=== PATIENT | female | born 1940 | race African-American/Black ===

== ENCOUNTER 2016-08-03 20:54 | Inpatient (IN) | payer MEDICARE, OTHER ==
[~2016-08-03] VITALS: Ht 152.4 cm; Wt 119.9 kg
[~2016-08-03 20:54] MED LIST: ALLO100T PO; AMLO5TAB2 PO; ASPI-482 PO; BUDE10.2 IH; DICL100G7 TP; EZET1TAB4 PO; FLUT1DIS3 IH; FURO-69 PO; HYDR-2666 PO; HYDR-2762 PO; ISOS20TA2 PO; LORA1TAB PO; LOSA25TA4 PO; MECL25TA3 PO; MELO-150 PO; METO100T11 PO; NITR0.4T SL; OMEP40CA5 PO; POTA20TA4 PO; PRED-220 PO; SERT50TA PO; SIMV10TA3 PO; SIMV20TA3 PO; TORS20TA2 PO; TRIA1CAP3 PO
[2016-08-03 21:29] LABS: BASO # 0.1 x10^3/uL (0.0-0.2); BASO % 1 % (0-3); EOS % 2 % (0-3); HEMATOCRIT 36.3 % (36.0-47.0); HEMOGLOBIN 11.1 g/dL (12.0-15.5); LYMPH # 2.2 x10^3/uL (1.0-4.8); LYMPH % 21 % (24-48); MEAN CORPUSCULAR HEMOGLOBIN 30 pg (25-35); MEAN CORPUSCULAR HGB CONC 31 g/dL (31-37); MEAN CORPUSCULAR VOLUME 96 fL (79-100); MONO % 7 % (0-9); NEUT % 69 % (31-73); PLATELET COUNT 225 x10^3/uL (140-400); RED BLOOD COUNT 3.76 x10^6/uL (3.50-5.40); RED CELL DISTRIBUTION WIDTH 14.9 % (11.5-14.5); WHITE BLOOD COUNT 10.1 x10^3/uL (4.0-11.0)
[2016-08-03 21:44] LABS: CALCIUM 9.6 mg/dL (8.5-10.1); CREATININE 0.9 mg/dL (0.6-1.0); GFR 74.1; POTASSIUM 4.4 mmol/L (3.5-5.1)
[2016-08-03] MEDS ORDERED: FUROSEMIDE 40 MG/4 ML VIAL. IVP ONE (22:00)
--- NOTE | 2016-08-03 22:17 | PHYS DOC ---
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 She's not been seen by any specialist for the last several months and her daughter at bedside is concerned that her respiratory status has been steadily worsening. Pt is normally requiring 4 L of supplemental oxygen and is currently saturating in the upper 90s on her usual 4 L in no acute distress. Pt has history of cough but this is chronic and likely secondary to her history of sarcoidosis. Review of Systems Review of Systems Constitutional: Denies fever or chills [] Eyes: Denies change in visual acuity, redness, or eye pain [] HENT: Denies nasal congestion or sore throat [] Respiratory: Has cough, has shortness of breath [] Cardiovascular: No additional information not addressed in HPI [] GI: Denies abdominal pain, nausea, vomiting, bloody stools or diarrhea [] : Denies dysuria or hematuria [] Musculoskeletal: Denies back pain or joint pain [] Integument: Denies rash or skin lesions [] Neurologic: Denies headache, focal weakness or sensory changes [] Endocrine: Denies polyuria or polydipsia [] Current Medications Current Medications Current Medications Medications (Trade) Dose Ordered Sig/Mike Start Time Stop Time Status Last Admin Dose Admin Furosemide (Lasix) 40 mg 1X ONCE 08/03/16 22:00 08/03/16 22:01 DC 08/03/16 22:15 40 MG Allergies Allergies Allergies Coded Allergies Type Severity Reaction Last Updated Verified codeine Allergy Intermediate N7V 06/29/13 Yes phenobarbital Allergy Intermediate 03/02/15 No Physical Exam Physical Exam Constitutional: Well developed, well nourished, no acute distress, non-toxic appearance. [] HENT: Normocephalic, atraumatic, bilateral external ears normal, oropharynx moist, no oral exudates, nose normal. [] Eyes: PERRLA, EOMI, conjunctiva normal, no discharge. [] Neck: Normal range of motion, no tenderness, supple, no stridor. [] Cardiovascular:Heart rate regular rhythm, no murmur [] Lungs & Thorax: Bilateral breath sounds clear to auscultation [] Abdomen: Bowel sounds normal, soft, no tenderness, no masses, no pulsatile masses. [] Skin: Warm, dry, no erythema, no rash. [] Back: No tenderness, no CVA tenderness. [] Extremities: No tenderness, no cyanosis, no clubbing, ROM intact, moderate lower extremity edema bilaterally. [] Neurologic: Alert and oriented X 3, normal motor function, normal sensory function, no focal deficits noted. [] Psychologic: Affect normal, judgement normal, mood normal. [] Current Patient Data Vital Signs Vital Signs Date Time Temp Pulse Resp B/P Pulse Ox O2 Delivery O2 Flow Rate FiO2 08/03/16 22:00 90 16 151/85 97 Nasal Cannula 4 08/03/16 20:54 98.1 98.1 Lab Values Laboratory Tests Test 08/03/16 21:22 White Blood Count 10.1x10^3/uL (4.0-11.0) Red Blood Count 3.76x10^6/uL (3.50-5.40) Hemoglobin 11.1g/dL (12.0-15.5) L Hematocrit 36.3% (36.0-47.0) Mean Corpuscular Volume 96fL (79-100) Mean Corpuscular Hemoglobin 30pg (25-35) Mean Corpuscular Hemoglobin Concent 31g/dL (31-37) Red Cell Distribution Width 14.9% (11.5-14.5) H Platelet Count 225x10^3/uL (140-400) Neutrophils (%) (Auto) 69% (31-73) Lymphocytes (%) (Auto) 21% (24-48) L Monocytes (%) (Auto) 7% (0-9) Eosinophils (%) (Auto) 2% (0-3) Basophils (%) (Auto) 1% (0-3) Neutrophils # (Auto) 7.0x10^3uL (1.8-7.7) Lymphocytes # (Auto) 2.2x10^3/uL (1.0-4.8) Monocytes # (Auto) 0.7x10^3/uL (0.0-1.1) Eosinophils # (Auto) 0.2x10^3/uL (0.0-0.7) Basophils # (Auto) 0.1x10^3/uL (0.0-0.2) Sodium Level 143mmol/L (136-145) Potassium Level 4.4mmol/L (3.5-5.1) Chloride Level 101mmol/L (98-107) Carbon Dioxide Level 41mmol/L (21-32) H Anion Gap 1 (6-14) L Blood Urea Nitrogen 17mg/dL (7-20) Creatinine 0.9mg/dL (0.6-1.0) Estimated GFR (Cockcroft-Gault) 74.1 Glucose Level 117mg/dL (70-99) H Calcium Level 9.6mg/dL (8.5-10.1) Troponin I Quantitative < 0.017ng/mL (0.000-0.055) KF-Euf-T-Type Natriuretic Peptide 2097pg/mL (0-124) H Laboratory Tests 08/03/16 21:22 Laboratory Tests 08/03/16 21:22 EKG EKG EKG as interpreted by me shows a sinus rhythm with rate of 87 bpm. There are no acute ischemic findings. Intervals are normal. Radiology/Procedures Radiology/Procedures One view of the chest as interpreted by me shows some vascular congestion and cardiomegaly consistent with CHF exacerbation. Course & Med Decision Making Course & Med Decision Making Pertinent Labs and Imaging studies reviewed. (See chart for details) This 76 yo female with history of CHF and insterstitial lung disease will be admitted to the hospital for likely CHF exacerbation. Her proBNP is elevated at 2000 which is much higher than her usual baseline. A dose of IV Lasix was given. Her case was discussed with the hospitalist, Dr. Juarez, who agreed to accept the patient with cardiology and pulmonology consult. Her chest x-ray is consistent with findings of CHF exacerbation. Her EKG did not reveal any obvious findings. Dragon Disclaimer Dragon Disclaimer This electronic medical record was generated, in whole or in part, using a voice recognition dictation system. Departure Departure Impression: Primary Impression: CHF exacerbation Disposition: ADMITTED INPATIENT Admitting Physician: Aric Juarez Condition: STABLE Referrals: ARIC JUAREZ MD (PCP) DHARMESH BANUELOS DO Aug 03, 2016 22:17
[2016-08-03] MEDS: FUROSEMIDE INJ 100 MG in IV NORMAL SALINE 100ML 100 ML IV PRN (22:26)
--- NOTE | 2016-08-03 22:58 | ACF ---
Admission Forms Criteria HEART FAILURE: COMMON COMPLICATIONS Clinical Indications for Inpatient Care (Place 'X' for any and all applicable criteria): Ongoing inpatient care may be indicated for heart failure with ANY ONE of the following (1)(2)(3)(4)(5): [ ]I. Ongoing need for care for primary condition requiring frequent therapy adjustments because of changes in cardiac function (eg, drug dosage changes for drugs that are renally metabolized) [ ]II. New-onset heart failure [ ]III. Heart failure with decreased urine output not responsive to attempts to optimize volume status [ ]IV. Acute cardiac ischemia causing or associated with failure [X]V. Complications of heart failure, including ANY ONE of the following: [ ]a) Pericardial effusion [ ]b) Symptomatic pleural effusion [ ]c) O2 saturation <90% or PO2 < 60 mm Hg (8.0 kPa) on room air or require baseline supplemental O2 [ ]d) Tachypnea [X]e) Dyspnea [ ]f) Syncope [ ]g) Change in mental status [ ]h) Acute renal insufficiency that is severe (reduction of more than 50% in estimated glomerular filtration rate from baseline) or progressive reduction of more than 25% in estimated glomerular filtration rate from baseline, with creatinine continuing to rise) [ ]i) Hemodynamic instability [ ]j) Anasarca [ ]k) Clinically significant metabolic abnormalities due to heart failure (eg, new-onset metabolic acidosis) Extended stay beyond goal length of stay for primary condition may be needed until ALL of the following are present(1)(3): [ ]a) Stable and effective diuretic regimen established (or patient on stable dialysis regimen if in chronic renal failure) [ ]b) Breathing comfortably at rest [ ]c) Saturation of arterial oxygen greater than 90% or at acceptable baseline [ ]d) Pulmonary edema absent or improved [ ]e) Hemodynamic stability [ ]f) Volume status acceptable on oral medication [ ]g) Peripheral or sacral edema absent or improved [ ]h) Renal function stable and manageable at a lower level of care [ ]i) Complications (eg, pleural effusion) resolved or manageable at a lower level of care [ ]j) Patient or caregiver has received written discharge instructions or educational material addressing activity level, diet, discharge medications, follow-up appointment, weight monitoring, and what to do if symptoms worsen The original [facility] content created by [employer] has been revised. The portions of the content which have been revised are identified through the use of italic text or in bold, and [facility] has neither reviewed nor approved the modified material.All other unmodified content is copyright [facility]. Please see references footnoted in the original [facility] edition 2016 Admission Criteria Met?: Yes COLLIN CARMONA. Aug 03, 2016 22:58
[2016-08-04] VITALS (11 sets, daily range): BP systolic 100–139; BP diastolic 47–84
[2016-08-04] MEDS ORDERED: ISOS30TA4 PO (01:17)
[2016-08-04] MEDS ORDERED: METO-269 PO (01:17)
[2016-08-04] MEDS ORDERED: SERT100T PO (01:17)
[2016-08-04] MEDS ORDERED: BUDE10.2 IH (01:17)
[2016-08-04 05:03] LABS: BASO # 0.1 x10^3/uL (0.0-0.2); BASO % 1 % (0-3); EOS % 3 % (0-3); HEMATOCRIT 32.5 % (36.0-47.0); HEMOGLOBIN 10.4 g/dL (12.0-15.5); LYMPH % 22 % (24-48); MEAN CORPUSCULAR HEMOGLOBIN 30 pg (25-35); MEAN CORPUSCULAR HGB CONC 32 g/dL (31-37); MEAN CORPUSCULAR VOLUME 94 fL (79-100); MONO % 10 % (0-9); NEUT % 63 % (31-73); PLATELET COUNT 198 x10^3/uL (140-400); RED BLOOD COUNT 3.45 x10^6/uL (3.50-5.40); RED CELL DISTRIBUTION WIDTH 14.7 % (11.5-14.5)
[2016-08-04 05:30] LABS: CALCIUM 8.8 mg/dL (8.5-10.1); CREATININE 1.1 mg/dL (0.6-1.0); GFR 58.7; POTASSIUM 3.9 mmol/L (3.5-5.1)
--- NOTE | 2016-08-04 08:52 | EKG ---
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
--- NOTE | 2016-08-04 08:58 | RAD ---
Indication shortness of air. A single view of the chest was obtained. Comparison is made to an examination 03/07/2015. There is mild cardiomegaly. There are patchy infiltrates in the lungs suggesting mild congestive heart failure. A consolidated pneumonia is not seen. Significant pleural fluid is not seen. There is no pneumothorax. IMPRESSION: Probable mild congestive heart failure. No focal consolidated pneumonia
[2016-08-04] MEDS ORDERED: HYDROCODONE/APAP 7.5/325MG TABLET. PO PRN (09:00)
[2016-08-04] MEDS ORDERED: LORAZEPAM 0.5 MG TABLET. PO PRN (09:00)
--- NOTE | 2016-08-04 09:03 | PDOC ---
Provider Note Provider Note [id number] AHMET SUAREZ MD Aug 04, 2016 09:03
[2016-08-04] MEDS: SERTRALINE 50 MG TABLET. PO SCH (09:41)
[2016-08-04] MEDS: ALLOPURINOL 100 MG TABLET. PO SCH (09:41)
[2016-08-04] MEDS: ISOSORBIDE MONONITRATE ER 30 MG TAB.ER.24H PO SCH (09:41)
[2016-08-04] MEDS: POTASSIUM CHLORIDE 20 MEQ TABLET.ER. PO SCH ×2 (09:41→17:46)
--- NOTE | 2016-08-04 09:51 | PDOC2 ---
PETER MUJICA DRY PASTE SUPERVISOR 08/04/16 0951: CARDIAC CONSULT DATE OF CONSULT Date of Consult DATE: 08/04/16 TIME: 09:45 REASON FOR CONSULT Reason for Consult: CHF Exacerbation REFERRING PHYSICIAN Referring Physician: Dr. Maher SOURCE Source: Chart review, Patient HISTORY OF PRESENT ILLNESS HISTORY OF PRESENT ILLNESS This is a 76 yo female, with a history of sarcoidosis, CAD, HTN, and chronic diastolic heart failure, who presented with complaints of lower extremity edema and shortness of breath, which is a chronic issue for. Reports LE edema has been ongoing for the last couple weeks. Shortness of breath and cough have been ongoing for the last year. Mild worse the baseline for the last week or so. Denies any chest pain, palpitations, dizziness, diaphoresis, or nausea/ vomiting. Reports complaints with medications. No recent illness/fevers. Has baseline orthopnea. PAST MEDICAL HISTORY Cardiovascular: CHF, HTN, Hyperlipidemia, Pulmonary hypertension, Other (ICM) Pulmonary: COPD, Other (sarcoidosis, JENELLE) GI: GERD Heme/Onc: No pertinent hx Hepatobiliary: No pertinent hx Psych: Anxiety, Depression Musculoskeletal: low back pain, Osteoarthritis Rheumatologic: Gout Infectious disease: No pertinent hx ENT: No pertinent hx Renal/: Chronic renal insuff Endocrine: Diabetes Dermatology: No pertinent hx PAST SURGICAL HISTORY Past Surgical History T & A FAMILY HISTORY Family History: Cancer, Heart Disease, Stroke SOCIAL HISTORY Smoke: No ALCOHOL: none Drugs: None Lives: with Family CURRENT MEDICATIONS CURRENT MEDICATIONS Current Medications Medications (Trade) Dose Ordered Sig/Mike Route PRN Reason Start Time Stop Time Status Last Admin Dose Admin Furosemide 40 mg 40 mg 1X ONCE IVP 08/03/16 22:00 08/03/16 22:01 DC 08/03/16 22:15 Furosemide/Sodium Chloride (Lasix Drip/Iv Sodium Chloride 0.9% 100ml) 100 ml @ 5 mls/hr CONT PRN IV SEE I/O RECORD 08/03/16 22:15 08/03/16 22:26 Allopurinol (Zyloprim) 100 mg DAILY PO 08/04/16 10:00 08/04/16 09:41 Isosorbide Mononitrate (Imdur) 30 mg DAILY PO 08/04/16 10:00 08/04/16 09:41 Lorazepam (Ativan) 1.5 mg PRN BID PRN PO ANXIETY / AGITATION 08/04/16 09:00 08/04/16 09:43 Potassium Chloride (Klor-Con) 20 meq BIDWMEALS PO 08/04/16 10:00 08/04/16 09:41 Sertraline HCl (Zoloft) 100 mg DAILY PO 08/04/16 10:00 08/04/16 09:41 ALLERGIES ALLERGIES: Coded Allergies: codeine (Verified Allergy, Intermediate, N7V, 06/29/13) phenobarbital (Unverified Allergy, Intermediate, 03/02/15) ROS Review of System 14 point ROS conducted with pertinent positives noted above in HPI PHYSICAL EXAM General: Alert, Oriented X3, Cooperative, No acute distress HEENT: Atraumatic, Mucous membr. moist/pink Lungs: Other (diminished bases ) Heart: Regular rate, Normal S1, Normal S2, No murmurs Abdomen: Soft, Other (obese ) Extremities: Other (2+ bilateral LE pitting edema. RLE with mild erythema. 1+ bilateral DP pulses ) Skin: No significant lesion Neuro: Normal speech, Sensation intact Psych/Mental Status: Mental status NL, Mood NL VITALS VITALS Vital Signs Date Time Temp Pulse Resp B/P Pulse Ox O2 Delivery O2 Flow Rate FiO2 08/04/16 09:41 77 109/63 08/04/16 08:50 Nasal Cannula 4.0 08/04/16 07:00 97.3 24 96 97.3 LABS Lab: Laboratory Tests Test 08/03/16 21:22 08/04/16 04:45 White Blood Count 10.1x10^3/uL (4.0-11.0) 9.0x10^3/uL (4.0-11.0) Red Blood Count 3.76x10^6/uL (3.50-5.40) 3.45x10^6/uL (3.50-5.40) Hemoglobin 11.1g/dL (12.0-15.5) 10.4g/dL (12.0-15.5) Hematocrit 36.3% (36.0-47.0) 32.5% (36.0-47.0) Mean Corpuscular Volume 96fL (79-100) 94fL (79-100) Mean Corpuscular Hemoglobin 30pg (25-35) 30pg (25-35) Mean Corpuscular Hemoglobin Concent 31g/dL (31-37) 32g/dL (31-37) Red Cell Distribution Width 14.9% (11.5-14.5) 14.7% (11.5-14.5) Platelet Count 225x10^3/uL (140-400) 198x10^3/uL (140-400) Neutrophils (%) (Auto) 69% (31-73) 63% (31-73) Lymphocytes (%) (Auto) 21% (24-48) 22% (24-48) Monocytes (%) (Auto) 7% (0-9) 10% (0-9) Eosinophils (%) (Auto) 2% (0-3) 3% (0-3) Basophils (%) (Auto) 1% (0-3) 1% (0-3) Neutrophils # (Auto) 7.0x10^3uL (1.8-7.7) 5.7x10^3uL (1.8-7.7) Lymphocytes # (Auto) 2.2x10^3/uL (1.0-4.8) 2.0x10^3/uL (1.0-4.8) Monocytes # (Auto) 0.7x10^3/uL (0.0-1.1) 0.9x10^3/uL (0.0-1.1) Eosinophils # (Auto) 0.2x10^3/uL (0.0-0.7) 0.3x10^3/uL (0.0-0.7) Basophils # (Auto) 0.1x10^3/uL (0.0-0.2) 0.1x10^3/uL (0.0-0.2) Sodium Level 143mmol/L (136-145) 145mmol/L (136-145) Potassium Level 4.4mmol/L (3.5-5.1) 3.9mmol/L (3.5-5.1) Chloride Level 101mmol/L (98-107) 104mmol/L (98-107) Carbon Dioxide Level 41mmol/L (21-32) 44mmol/L (21-32) Anion Gap 1 (6-14) -3 (6-14) Blood Urea Nitrogen 17mg/dL (7-20) 17mg/dL (7-20) Creatinine 0.9mg/dL (0.6-1.0) 1.1mg/dL (0.6-1.0) Estimated GFR (Cockcroft-Gault) 74.1 58.7 Glucose Level 117mg/dL (70-99) 155mg/dL (70-99) Calcium Level 9.6mg/dL (8.5-10.1) 8.8mg/dL (8.5-10.1) Troponin I Quantitative < 0.017ng/mL (0.000-0.055) TI-Ckc-N-Type Natriuretic Peptide 2097pg/mL (0-124) Thyroid Stimulating Hormone (TSH) 1.464uIU/mL (0.358-3.74) ECHOCARDIOGRAM ECHOCARDIOGRAM <Conclusion> Technically difficult study. The left ventricle is normal size. Left ventricle systolic function appears low normal to mildly decreased. LV ejection fraction is estimated at 45%. There is no significant aortic valvular stenosis. Doppler and Color Flow revealed no significant aortic regurgitation. Doppler and Color Flow revealed trace to mild mitral regurgitation. Doppler and Color Flow revealed trace to mild tricuspid regurgitation. The PA pressure was estimated at 35 mmHg. There is no evidence of significant pericardial effusion. DATE: 01/30/15 1641 <Conclusion> The left ventricle is normal size. Left ventricle systolic function is normal. The Ejection Fraction is 50-55%. There is no significant aortic valvular stenosis. Doppler and Color Flow revealed no significant aortic regurgitation. Doppler and Color Flow revealed mild mitral regurgitation. Doppler and Color Flow revealed mild tricuspid regurgitation. The PA pressure was estimated at 43 mmHg. DATE: 01/16/16 1123 HEART CATH HEART CATH CORONARY ANGIOGRAPHY LM is a large caliber vessel with an ostial 20% stenosis. LAD is a moderate caliber vessel with mild luminal irregularities. Ramus is a moderate caliber proximally bifurcating vessel with mild luminal irregularities. LCx is a moderate caliber non-dominant vessel with a mid 30% stenosis. RCA is a moderate caliber dominant vessel with a mid long 50% stenosis. The distal vessel is free of significant obstructive disease. There is a prominent RV marginal branch suggestive of RV hypertrophy. Conclusion 1. Elevated left ventricular filling pressure. 2. Non-obstructive coronary artery disease. DATE: 05/06/15 1235 ASSESSMENT/PLAN ASSESSMENT/PLAN 1. Acute on chronic diastolic heart failure 2. Acute on chronic respiratory failure 3. Sarcoidosis 4. Pulmonary HTN; PAP 43 5. CAD, non-obstructive 6. Hypertension 7. CKD 8. Diabetes Recommendations Will repeat echo to assess LV function Continue diuresis with monitor of renal function continue ASA, BB, and nitrate check lipids- statin therapy if indicated follow pulmonary recommendations Problems: FELICIA FIGUEROA MD 08/04/16 1810: CARDIAC CONSULT ALLERGIES ALLERGIES: Coded Allergies: codeine (Verified Allergy, Intermediate, N7V, 06/29/13) phenobarbital (Unverified Allergy, Intermediate, 03/02/15) ASSESSMENT/PLAN ASSESSMENT/PLAN Patient seen and examined. Agree with above nurse practitioner noted. 76-year-old woman presenting with significant lower extremity edema and exertional dyspnea over the last 3-4 months. Denies any chest pain, arrhythmias or dietary noncompliance. On examination she has 2+ pitting edema below the knee. Echocardiogram demonstrates normal LV function. Continue aggressive diuresis. Supportive care. Might benefit from rehabilitation. Will follow along closely. Problems: PETER MUJICA APRN Aug 04, 2016 09:51 FELICIA FIGUEROA MD Aug 04, 2016 18:10
[2016-08-04] MEDS: ASPIRIN ENTERIC COATED 81 MG TABLET.DR. PO SCH (10:00)
[2016-08-04] MEDS: METOPROLOL SUCC 24HR ER 50 MG TAB.ER.24H. PO SCH (10:00)
--- NOTE | 2016-08-04 10:52 | HP ---
ADMIT DATE: 08/03/2016 CHIEF COMPLAINT: Shortness of breath and swelling. HISTORY OF PRESENT ILLNESS: A 76-year-old black female has been on oxygen for several years for history of pulmonary sarcoidosis. One year ago, she had a cardiac catheterization, which revealed a good ejection fraction and only mild coronary disease and echocardiogram showed ejection fraction of 55% with mild pulmonary hypertension. So, it is felt her problems were primarily pulmonary. She has had increasing shortness of breath and nonproductive cough for the last few weeks as well as swelling. PAST MEDICAL HISTORY: Diet-controlled diabetic. She has CKD 3, which is stable. MEDICATIONS: Listed per the chart. ALLERGIES: CODEINE. SOCIAL HISTORY: She is , lives with her daughter. Nonsmoker, nondrinker, not physically active. FAMILY HISTORY: Unremarkable. REVIEW OF SYSTEMS: No other complaints. OBJECTIVE: ENT: All within normal limits. NECK: No masses, nodes or thyroid enlargement or bruits. LUNGS: Decreased breath sounds. No tachypnea or wheezes. CARDIOVASCULAR: Regular rate. No tachycardia or S3. ABDOMEN: Obese, soft, benign and nontender. EXTREMITIES: A 2+ pretibial edema up to both knees, pitting in nature. Pedal pulses are mildly diminished. Upper extremities are normal. NEUROLOGIC: Physiologic and nonfocal. ASSESSMENT: 1. History of pulmonary sarcoidosis with ongoing pedal edema. It may be secondary to pulmonary hypertension, but other possibilities would be recurrent pulmonary emboli, hypothyroidism and others. 2. History of mild coronary disease with no notable cardiomyopathy. PLAN: TSH. We will check outpatient records regarding last CT scan, pulmonary consultation and continue Lasix infusion for now. AHMET SUAREZ MD DR: PHILLIP/annamarie JOB#: [id number] / [id number]
--- NOTE | 2016-08-04 12:37 | PDOC ---
Provider Note Provider Note dictated MARCELINA KABA MD Aug 04, 2016 12:37
--- NOTE | 2016-08-04 13:45 | CONS ---
DATE OF CONSULTATION: 08/04/2016 ATTENDING PHYSICIAN: Dr. Aric Juarez. REASON FOR CONSULTATION: Dyspnea. 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 She has history of cardiac catheterization which revealed good ejection fraction but evidence of increased left ventricular filling pressures consistent with CHF. She has history of JENELLE, but intolerant to CPAP. She was brought into the hospital with increasing abdominal girth and also increased lower extremity edema. The patient has been on 4 liters of oxygen at home and at present saturation is 95%. Her chest x-ray was reviewed, and it was consistent with mild congestive heart failure. She has no cough, no fever, no chills, no chest pain, no headache, no nausea, vomiting, no diarrhea. PAST MEDICAL HISTORY: History of diabetes, history of CKD stage III, history of obstructive sleep apnea with intolerance to CPAP, and history of chronic respiratory failure. PAST SURGICAL HISTORY: No recent surgery. ALLERGIES: CODEINE AND PHENOBARB. CURRENT MEDICATIONS: Reviewed as listed in the MRAD. REVIEW OF SYSTEMS: Twelve-point system was obtained. Pertinent positives are discussed in the history of present illness, otherwise noncontributory. All systems that were negative were reviewed as well. SOCIAL HISTORY: Denies tobacco use. PHYSICAL EXAMINATION: VITAL SIGNS: Stable, pulse oximetry 95% on 4 liters. NECK: Supple. LUNGS: Diminished breath sounds. CARDIOVASCULAR: Regular rate. ABDOMEN: Soft, obese. EXTREMITIES: With 3+ pitting edema bilaterally. LABORATORY DATA: Reviewed. White cell count 9.0, hemoglobin 10.4, and platelets are 198, BUN is 17, and creatinine 0.9. IMPRESSION: 1. Dyspnea with increasing pedal edema, most likely secondary to biventricular heart failure. 2. Underlying obstructive sleep apnea/obesity hypoventilation syndrome with intolerance to CPAP. 3. Underlying diastolic heart failure with previous cardiac catheterization with a normal ejection fraction but evidence of increased left heart filling pressures. 4. Morbid obesity. 5. Abnormal chest x-ray consistent with congestive heart failure. RECOMMENDATIONS: 1. Continue with present Lasix drip. 2. Follow BUN and creatinine. 3. Follow chest x-ray. 4. Continue oxygen at 4 liters. 5. Continue with present bronchodilator. 6. We will follow along with you. Discussed with the family. MARCELINA KABA MD DR: Neeraj JOB#: [id number] / [id number]
--- NOTE | 2016-08-04 16:03 | CARD ---
APPROVED REPORT EXAM: Two-dimensional and M-mode echocardiogram with Doppler and color Doppler. Other Information Quality : FairHR: 97bpm Rhythm : NSR INDICATION Congestive Heart Failure RISK FACTORS Obesity 2D DIMENSIONS RVDd2.3 (2.9-3.5cm)Left Atrium(2D)3.5 (1.6-4.0cm) IVSd1.2 (0.7-1.1cm)Aortic Root(2D)2.8 (2.0-3.7cm) LVDd5.0 (3.9-5.9cm)LVOT Diameter2.1 (1.8-2.4cm) PWd1.2 (0.7-1.1cm)LVDs3.5 (2.5-4.0cm) FS (%) 30.3 %SV67.3 ml LVEF(%)57.5 (>50%) Aortic Valve AoV Peak Prem.169.7cm/sAoV VTI30.0cm AO Peak GR.11.5mmHgLVOT VTI 16.44cm AO Mean GR.7mmHg Mitral Valve MV E Wpyfnyyi070.5cm/sMV E Peak Gr.6mmHg MV DECEL DJEV054oaPM A Jvwuzfit75.8cm/s MV E Mean Gr.3mmHgE/A Ratio1.3 MV A [id number] TDI Lateral E' P. V9.08cm/sMedial E' P. V10.46cm/s E/Lateral E'11.4E/Medial E'9.9 LEFT VENTRICLE The left ventricle is normal size. There is mild concentric left ventricular hypertrophy. The left ve ntricular systolic function is normal and the ejection fraction is within normal range. The Ejection Fraction is 60-65%. There is normal LV segmental wall motion. Transmitral Doppler flow pattern is nor mal for age. RIGHT VENTRICLE The right ventricle is not well visualized. There is normal right ventricular wall thickness. The rig ht ventricular systolic function is normal. ATRIA The left atrium is not well visualized. The right atrium is not well visualized. The atrial septum is not well visualized. AORTIC VALVE The aortic valve is not well visualized. Doppler and Color Flow revealed no significant aortic regurg itation. There is no significant aortic valvular stenosis. MITRAL VALVE There is no mitral valve stenosis. Doppler and Color Flow revealed no mitral valve regurgitation note d. TRICUSPID VALVE The tricuspid valve is not well visualized. Unable to assess for regurgitation or pulmonary hypertens ion. PULMONIC VALVE Pulmonary valve is not well visualized. GREAT VESSELS The aortic root is normal in size. The IVC was not visualized. PERICARDIAL EFFUSION There is no evidence of significant pericardial effusion. Critical Notification Critical Value: No <Conclusion> The left ventricular systolic function is normal and the ejection fraction is within normal range. Th e Ejection Fraction is 60-65%. There is grossly normal LV segmental wall motion. Technically difficult study due to body habitus.
[2016-08-04] MEDS: FUROSEMIDE INJ 100 MG in IV NORMAL SALINE 100ML 100 ML IV PRN (23:26)
[2016-08-05] VITALS (7 sets, daily range): BP systolic 95–128; BP diastolic 48–82
[2016-08-05 03:46] LABS: CHOLESTEROL/HDL RATIO 2.4
--- NOTE | 2016-08-05 09:14 | PDOC ---
Provider Note Provider Note still dry cough and edema but less- vss, lab / echo ok- will do bid lasix now, ? ct chest re sarcoid status AHMET SUAREZ MD Aug 05, 2016 09:14
[2016-08-05] MEDS: ASPIRIN ENTERIC COATED 81 MG TABLET.DR. PO SCH (09:17)
[2016-08-05] MEDS: POTASSIUM CHLORIDE 20 MEQ TABLET.ER. PO SCH ×2 (09:18→17:45)
[2016-08-05] MEDS: ALLOPURINOL 100 MG TABLET. PO SCH (09:18)
[2016-08-05] MEDS: SERTRALINE 50 MG TABLET. PO SCH (09:18)
[2016-08-05] MEDS: ISOSORBIDE MONONITRATE ER 30 MG TAB.ER.24H PO SCH (09:20)
[2016-08-05] MEDS: METOPROLOL SUCC 24HR ER 50 MG TAB.ER.24H. PO SCH (09:20)
[2016-08-05] MEDS: FUROSEMIDE 40 MG/4 ML VIAL. IVP SCH ×2 (11:19→14:15)
[2016-08-05 11:46] LABS: CALCIUM 8.5 mg/dL (8.5-10.1); CREATININE 1.1 mg/dL (0.6-1.0); GFR 58.7; MAGNESIUM 2.2 mg/dL (1.8-2.4); POTASSIUM 3.9 mmol/L (3.5-5.1)
--- NOTE | 2016-08-05 11:53 | PDOC ---
PETER MUJICA FILTER P[employer]P W[employer]ER 08/05/16 1153: CARDIO Progress Notes Date and Time Date of Service 08/05/16 Time of Evaluation 1115 Subjective Subjective: No Chest Pain, No Palpitations, No Dizziness, Other (SOA improved but persists ) Vitals Vitals Vital Signs Date Time Temp Pulse Resp B/P Pulse Ox O2 Delivery O2 Flow Rate FiO2 08/05/16 11:00 98.1 86 20 95/53 96 Nasal Cannula 4.0 98.1 Weight Weight [ ] Input and Output Intake and Output Intake and Output 08/05/16 06:59 Intake Total 1064 ml Output Total 2800 ml Balance -1736 ml Intake Oral 990 ml IV Total 74 ml Output Urine Total 2800 ml Laboratory Labs Laboratory Tests Test 08/05/16 03:10 Triglycerides Level 34mg/dL (0-150) Cholesterol Level 161mg/dL (0-200) LDL Cholesterol, Calculated 88mg/dL (0-100) VLDL Cholesterol, Calculated 7mg/dL (0-40) HDL Cholesterol 66mg/dL (40-60) Cholesterol/HDL Ratio 2.4 Physical Exam HEENT: Neck Supple W Full Motion Chest: Symmetric LUNGS: Clear to Auscultation, Other (diminished bases ) Heart: S1S2, RRR, no murmurs Abdomen: Soft N/T, Other (obese ) Extremities: No Calf Tenderness, Other (2+ bilateral LE pitting edema. 1+ bilateral DP pulses) Neurology: alert, oriented, follow commands Assessment Assessment 1. Acute on chronic diastolic heart failure 2. Acute on chronic respiratory failure 3. Sarcoidosis 4. Pulmonary HTN; PAP 43 5. CAD, non-obstructive 6. Hypertension 7. CKD 8. Diabetes Recommendations recheck BMP Continue aggressive diuresis with monitoring of renal function Follow pulmonary recommendations Supportive care from CV perspective. FELICIA FIGUEROA MD 08/05/16 9789: CARDIO Progress Notes Plan Plan Patient seen and examined. Agree with above nurse practitioner noted. Patient reports that she feels a little bit better than yesterday Excellent diuresis approximately -4 L since admission. Medications reviewed and currently on Lasix 40 mg IV push twice a day On exam she has persistent 2+ pitting edema. Labs reviewed and creatinine is stable. Her Dolan catheter is been discontinued. We will check a standing weight today and repeated again tomorrow. Anticipate that if she maintains good urine output overnight then we will plan on discharging her on twice a day dosing of Lasix or Bumex We will follow along closely. Discussed with family at bedside. PETER MUJICA APRN Aug 05, 2016 11:53 FELICIA FIGUEROA MD Aug 05, 2016 17:19
--- NOTE | 2016-08-05 12:06 | PDOC ---
PULMONARY PROGRESS NOTES Subjective feels better Vitals Vital Signs Date Time Temp Pulse Resp B/P Pulse Ox O2 Delivery O2 Flow Rate FiO2 08/05/16 11:00 98.1 86 20 95/53 96 Nasal Cannula 4.0 98.1 General: Alert, No acute distress Lungs: Other (decrease bs) Cardiovascular: S1 Abdomen: Soft, Non-tender Extremities: Other (2+edema) Labs Laboratory Tests Test 08/03/16 21:22 08/04/16 04:45 08/05/16 03:10 White Blood Count 10.1x10^3/uL (4.0-11.0) 9.0x10^3/uL (4.0-11.0) Red Blood Count 3.76x10^6/uL (3.50-5.40) 3.45x10^6/uL (3.50-5.40) Hemoglobin 11.1g/dL (12.0-15.5) 10.4g/dL (12.0-15.5) Hematocrit 36.3% (36.0-47.0) 32.5% (36.0-47.0) Mean Corpuscular Volume 96fL (79-100) 94fL (79-100) Mean Corpuscular Hemoglobin 30pg (25-35) 30pg (25-35) Mean Corpuscular Hemoglobin Concent 31g/dL (31-37) 32g/dL (31-37) Red Cell Distribution Width 14.9% (11.5-14.5) 14.7% (11.5-14.5) Platelet Count 225x10^3/uL (140-400) 198x10^3/uL (140-400) Neutrophils (%) (Auto) 69% (31-73) 63% (31-73) Lymphocytes (%) (Auto) 21% (24-48) 22% (24-48) Monocytes (%) (Auto) 7% (0-9) 10% (0-9) Eosinophils (%) (Auto) 2% (0-3) 3% (0-3) Basophils (%) (Auto) 1% (0-3) 1% (0-3) Neutrophils # (Auto) 7.0x10^3uL (1.8-7.7) 5.7x10^3uL (1.8-7.7) Lymphocytes # (Auto) 2.2x10^3/uL (1.0-4.8) 2.0x10^3/uL (1.0-4.8) Monocytes # (Auto) 0.7x10^3/uL (0.0-1.1) 0.9x10^3/uL (0.0-1.1) Eosinophils # (Auto) 0.2x10^3/uL (0.0-0.7) 0.3x10^3/uL (0.0-0.7) Basophils # (Auto) 0.1x10^3/uL (0.0-0.2) 0.1x10^3/uL (0.0-0.2) Sodium Level 143mmol/L (136-145) 145mmol/L (136-145) 144mmol/L (136-145) Potassium Level 4.4mmol/L (3.5-5.1) 3.9mmol/L (3.5-5.1) 3.9mmol/L (3.5-5.1) Chloride Level 101mmol/L (98-107) 104mmol/L (98-107) 98mmol/L (98-107) Carbon Dioxide Level 41mmol/L (21-32) 44mmol/L (21-32) 41mmol/L (21-32) Anion Gap 1 (6-14) -3 (6-14) 5 (6-14) Blood Urea Nitrogen 17mg/dL (7-20) 17mg/dL (7-20) 18mg/dL (7-20) Creatinine 0.9mg/dL (0.6-1.0) 1.1mg/dL (0.6-1.0) 1.1mg/dL (0.6-1.0) Estimated GFR (Cockcroft-Gault) 74.1 58.7 58.7 Glucose Level 117mg/dL (70-99) 155mg/dL (70-99) 121mg/dL (70-99) Calcium Level 9.6mg/dL (8.5-10.1) 8.8mg/dL (8.5-10.1) 8.5mg/dL (8.5-10.1) Troponin I Quantitative < 0.017ng/mL (0.000-0.055) HN-Kce-V-Type Natriuretic Peptide 2097pg/mL (0-124) Thyroid Stimulating Hormone (TSH) 1.464uIU/mL (0.358-3.74) Magnesium Level 2.2mg/dL (1.8-2.4) Triglycerides Level 34mg/dL (0-150) Cholesterol Level 161mg/dL (0-200) LDL Cholesterol, Calculated 88mg/dL (0-100) VLDL Cholesterol, Calculated 7mg/dL (0-40) HDL Cholesterol 66mg/dL (40-60) Cholesterol/HDL Ratio 2.4 Laboratory Tests Test 08/05/16 03:10 Sodium Level 144mmol/L (136-145) Potassium Level 3.9mmol/L (3.5-5.1) Chloride Level 98mmol/L (98-107) Carbon Dioxide Level 41mmol/L (21-32) Anion Gap 5 (6-14) Blood Urea Nitrogen 18mg/dL (7-20) Creatinine 1.1mg/dL (0.6-1.0) Estimated GFR (Cockcroft-Gault) 58.7 Glucose Level 121mg/dL (70-99) Calcium Level 8.5mg/dL (8.5-10.1) Magnesium Level 2.2mg/dL (1.8-2.4) Triglycerides Level 34mg/dL (0-150) Cholesterol Level 161mg/dL (0-200) LDL Cholesterol, Calculated 88mg/dL (0-100) VLDL Cholesterol, Calculated 7mg/dL (0-40) HDL Cholesterol 66mg/dL (40-60) Cholesterol/HDL Ratio 2.4 Medications Active Scripts Medications Dose Route/Sig Days Date Category Isosorbide Mononitrate Er (Isosorbide Mononitrate) 30 Mg Tab.er.24h 30 Mg PO DAILY 08/04/16 Reported Symbicort 160-4.5 Mcg Inhaler (Budesonide/Formoterol Fumarate) 10.2 Gm Hfa.aer.ad 2 Puff IH BID 08/04/16 Reported Zoloft (Sertraline Hcl) 100 Mg Tablet 100 Mg PO DAILY 08/04/16 Reported Toprol Xl (Metoprolol Succinate) 50 Mg Tab.er.24h 50 Mg PO DAILY 08/04/16 Reported Voltaren (Diclofenac Sodium) 100 Gm Gel..gram. 1 Gm TP QID 06/25/14 Reported Torsemide 20 Mg Tablet 40 Mg PO BID 06/25/14 Reported Hydrocodone-Apap 7.5-325 (Hydrocodone Bit/Acetaminophen) 1 Each Tablet 1 Tab PO PRN Q6HRS PRN 06/25/14 Reported Simvastatin 20 Mg Tablet 20 Mg PO HS 06/25/14 Reported Klor-Con M20 (Potassium Chloride) 20 Meq Tab.er.prt 20 Meq PO BID 06/29/13 Reported Meclizine Hcl 25 Mg Tablet 75 Mg PO DAILY 06/29/13 Reported Allopurinol 100 Mg Tablet 100 Mg PO DAILY 06/29/13 Reported Lorazepam 1 Mg Tablet 1.5 Mg PO BID PRN 06/29/13 Reported Aspir 81 (Aspirin) 81 Mg Tablet.dr 162 Mg PO DAILY 06/29/13 Reported Impression . 1. Dyspnea with increasing pedal edema, most likely secondary to biventricular heart failure. 2. Underlying obstructive sleep apnea/obesity hypoventilation syndrome with intolerance to CPAP. 3. Underlying diastolic heart failure with previous cardiac catheterization with a normal ejection fraction but evidence of increased left heart filling pressures. 4. Morbid obesity. 5. Abnormal chest x-ray consistent with congestive heart failure. Plan . 1. Continue with present Lasix 2. Follow BUN and creatinine. 3. Follow chest x-ray. 4. Continue oxygen at 4 liters. 5. Continue with present bronchodilator. 6. We will follow along with you. MARCELINA KABA MD Aug 05, 2016 12:06
[2016-08-06 03:59] VITALS: BP 98/63
[2016-08-06 07:00] VITALS: BP 103/71
[2016-08-06] MEDS: POTASSIUM CHLORIDE 20 MEQ TABLET.ER. PO SCH ×2 (08:01→16:59)
[2016-08-06] MEDS: ASPIRIN ENTERIC COATED 81 MG TABLET.DR. PO SCH (08:02)
[2016-08-06] MEDS: SERTRALINE 50 MG TABLET. PO SCH (08:02)
[2016-08-06] MEDS: ALLOPURINOL 100 MG TABLET. PO SCH (08:02)
[2016-08-06] MEDS: METOPROLOL SUCC 24HR ER 50 MG TAB.ER.24H. PO SCH (08:03)
[2016-08-06] MEDS: FUROSEMIDE 40 MG/4 ML VIAL. IVP SCH ×2 (08:04→14:31)
[2016-08-06] MEDS: ISOSORBIDE MONONITRATE ER 30 MG TAB.ER.24H PO SCH ×2 (09:00→14:33)
--- NOTE | 2016-08-06 09:46 | PDOC ---
Provider Note Provider Note vss, still lots of leg edema despite good diuresis- echo noted- cont bid lasix, add venous doppler and proph xarelto dose as high risk- d/w daughter AHMET SUAREZ MD Aug 06, 2016 09:46
--- NOTE | 2016-08-06 12:30 | RAD ---
Bilateral lower extremity venous ultrasound, 08/06/2016: History: Leg edema Duplex evaluation of the deep veins in the lower extremities was performed including grayscale, color-flow and spectral Doppler analysis. The exam was somewhat limited by the patient's size. The femoral and popliteal veins demonstrate normal compressibility and normal responses to distal augmentation maneuvers. Color imaging of those vessels shows no evidence of intraluminal clot. The visualized deep veins in both calves are patent. IMPRESSION: There is no sonographic evidence of deep vein thrombosis in either lower extremity.
--- NOTE | 2016-08-06 12:49 | PDOC ---
PETER MUJICA KRYSTA 08/06/16 1249: CARDIO Progress Notes Date and Time Date of Service 08/06/16 Time of Evaluation 1145 Subjective Subjective: No Chest Pain, No Palpitations, No Dizziness, Other (continued SOA , edema persists ) Comments: continues to have significant output. Vitals Vitals Vital Signs Date Time Temp Pulse Resp B/P Pulse Ox O2 Delivery O2 Flow Rate FiO2 08/06/16 11:20 77 08/06/16 08:03 103/71 08/06/16 08:00 Nasal Cannula 4.0 08/06/16 07:00 98.1 24 92 98.1 Weight Weight [ ] Input and Output Intake and Output Intake and Output 08/06/16 07:00 Intake Total 160 ml Output Total 3150 ml Balance -2990 ml Intake Oral 100 ml IV Total 60 ml Output Urine Total 3150 ml # Voids 1 Physical Exam HEENT: Neck Supple W Full Motion Chest: Symmetric LUNGS: Clear to Auscultation, Other (diminished bases ) Heart: S1S2, RRR, no murmurs Abdomen: Soft N/T, Other (obese ) Extremities: No Calf Tenderness, Other (persistant 2+ bilateral LE pitting edema. 1+ bilateral DP pulses) Neurology: alert, oriented, follow commands Assessment Assessment 1. Acute on chronic diastolic heart failure 2. Acute on chronic respiratory failure 3. Sarcoidosis 4. Pulmonary HTN; PAP 43 5. JENELLE; intolerant to CPAP 6. CAD, non-obstructive 7. Hypertension 8. CKD 9. Diabetes Recommendations BMP in am. Unable to get accurate I and O due to incontinence. Weight 268 yesterday, now 265. Continue diuresis; consider addition of metolazone. Follow pulmonary recommendations Supportive care from CV perspective. FELICIA FIGUEROA MD 08/06/16 1644: CARDIO Progress Notes Plan Plan Pt. seen and examined. 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 No events overnight. Continues to have to sleep in chair. Significant persistent LE edema. 2+ to the knees. Suspect she has significant JENELLE. (Defer to pulm for further eval) Will continue IV diuresis. Daily weights. Will follow. Noted LE u/s. SIL,EMILY KRYSTA Aug 06, 2016 12:49 FELICIA FIGUEROA MD Aug 06, 2016 16:44
[2016-08-06 15:00] VITALS: BP 114/74
[2016-08-06 16:02] VITALS: BP 114/74
[2016-08-06] MEDS ORDERED: RIVAROXABAN 10 MG TABLET. PO SCH (17:00)
[2016-08-06 20:00] VITALS: BP 108/71
[2016-08-06] MEDS: BUDESONIDE 0.5 MG/2 ML NEBU. NEB SCH (21:03)
[2016-08-06 23:31] VITALS: BP 110/75
[2016-08-07 03:52] VITALS: BP 111/87
[2016-08-07] MEDS: BUDESONIDE 0.5 MG/2 ML NEBU. NEB SCH (06:10)
[2016-08-07 07:00] VITALS: BP 123/69
[2016-08-07] MEDS: POTASSIUM CHLORIDE 20 MEQ TABLET.ER. PO SCH (08:00)
--- NOTE | 2016-08-07 08:14 | DISCH ---
DISCHARGE FINAL DIAGNOSIS Problems Medical Problems: (1) CHF exacerbation Status: Acute CONDITION ON DISCHARGE: Stable SNF STAY <30 DAYS: Yes POST DISCHARGE ORDERS ACTIVITY ORDERS: Activity as tolerated WEIGHT BEARING STATUS: No restrictions DIET AFTER DISCHARGE: Cardiac AHMET SUAREZ MD Aug 07, 2016 08:14
--- NOTE | 2016-08-07 08:25 | PDOC ---
Provider Note Provider Note [id number] AHMET SUAREZ MD Aug 07, 2016 08:25
[2016-08-07] MEDS ORDERED: FUROSEMIDE 40 MG TABLET. PO SCH (08:30)
[2016-08-07] MEDS: METOPROLOL SUCC 24HR ER 50 MG TAB.ER.24H. PO SCH (09:00)
[2016-08-07] MEDS: ISOSORBIDE MONONITRATE ER 30 MG TAB.ER.24H PO SCH (09:00)
[2016-08-07] MEDS: ALLOPURINOL 100 MG TABLET. PO SCH (09:08)
[2016-08-07] MEDS: ASPIRIN ENTERIC COATED 81 MG TABLET.DR. PO SCH (09:08)
[2016-08-07] MEDS: SERTRALINE 50 MG TABLET. PO SCH (09:08)
--- NOTE | 2016-08-07 09:40 | PDOC ---
CARDIO Progress Notes Date and Time Date of Service 08/07/16 Time of Evaluation 0915 Subjective Subjective: No Chest Pain, No Palpitations, No Dizziness, Other (basline breathing improved; having CRONIN) Vitals Vitals Vital Signs Date Time Temp Pulse Resp B/P Pulse Ox O2 Delivery O2 Flow Rate FiO2 08/07/16 08:00 Nasal Cannula 3.0 08/07/16 07:00 97.6 73 18 123/69 98 97.6 Weight Weight [ ] Input and Output Intake and Output Intake and Output 08/07/16 06:59 Intake Total 250 ml Output Total 1125 ml Balance -875 ml Intake Oral 250 ml Output Urine Total 1125 ml # Voids 2 # Bowel Movements 1 Physical Exam HEENT: Neck Supple W Full Motion Chest: Symmetric LUNGS: Clear to Auscultation, Other (diminished bases ) Heart: S1S2, RRR, no murmurs Abdomen: Soft N/T, Other (obese ) Extremities: No Calf Tenderness, Other (1-2+ bilateral LE pitting edema. 1+ bilateral DP pulses) Neurology: alert, oriented, follow commands Assessment Assessment 1. Acute on chronic diastolic heart failure; compensated. LV function preserved 2. Acute on chronic respiratory failure; now on NC 3. Sarcoidosis 4. Pulmonary HTN; PAP 43 5. JENELLE; intolerant to CPAP 6. CAD, non-obstructive 7. Hypertension; well-controlled 8. CKD; Cr at baseline 9. Diabetes Recommendations Lasix converted to oral BID this morning. Discussed 2000 FR, 2 Gm Na, and daily weight monitoring with patient and daughter. Also discussed LE elevation Unable to get accurate I and O due to intermittent incontinence. I < O. Weight now 264. Is crushing pills due to dysphagia; will covert Imdur and Toprol to short acting as these cannot be crushed. Continue secondary prevention in the management of CAD May discharge from CV standpoint and f/u in our office with Dr. Hou in 2- 4 weeks. Appointment scheduled with PCP in 1 week. Follow pulmonary recommendations PETER MUJICA APRN Aug 07, 2016 09:40
[2016-08-07] MEDS ORDERED: ISOSORBIDE MONONITRATE 20 MG TABLET PO SCH (10:00)
[2016-08-07] MEDS ORDERED: METOPROLOL TART IMMED RELEASE 25 MG TABLET. PO SCH (10:00)
[2016-08-07] MEDS ORDERED: POTASSIUM CHLORIDE 20 MEQ/15 ML ORAL LIQUID. PO SCH (10:00)
--- NOTE | 2016-08-07 10:03 | PDOC ---
PULMONARY PROGRESS NOTES Subjective feels better Vitals Vital Signs Date Time Temp Pulse Resp B/P Pulse Ox O2 Delivery O2 Flow Rate FiO2 08/07/16 08:00 Nasal Cannula 3.0 08/07/16 07:00 97.6 73 18 123/69 98 97.6 General: Alert, No acute distress Lungs: Other (decrease bs) Cardiovascular: S1 Abdomen: Soft, Non-tender Extremities: Other (2+edema) Medications Active Scripts Medications Dose Route/Sig Days Date Category Isosorbide Mononitrate Er (Isosorbide Mononitrate) 30 Mg Tab.er.24h 30 Mg PO DAILY 08/04/16 Reported Symbicort 160-4.5 Mcg Inhaler (Budesonide/Formoterol Fumarate) 10.2 Gm Hfa.aer.ad 2 Puff IH BID 08/04/16 Reported Zoloft (Sertraline Hcl) 100 Mg Tablet 100 Mg PO DAILY 08/04/16 Reported Toprol Xl (Metoprolol Succinate) 50 Mg Tab.er.24h 50 Mg PO DAILY 08/04/16 Reported Voltaren (Diclofenac Sodium) 100 Gm Gel..gram. 1 Gm TP QID 06/25/14 Reported Torsemide 20 Mg Tablet 40 Mg PO BID 06/25/14 Reported Hydrocodone-Apap 7.5-325 (Hydrocodone Bit/Acetaminophen) 1 Each Tablet 1 Tab PO PRN Q6HRS PRN 06/25/14 Reported Simvastatin 20 Mg Tablet 20 Mg PO HS 06/25/14 Reported Klor-Con M20 (Potassium Chloride) 20 Meq Tab.er.prt 20 Meq PO BID 06/29/13 Reported Meclizine Hcl 25 Mg Tablet 75 Mg PO DAILY 06/29/13 Reported Allopurinol 100 Mg Tablet 100 Mg PO DAILY 06/29/13 Reported Lorazepam 1 Mg Tablet 1.5 Mg PO BID PRN 06/29/13 Reported Aspir 81 (Aspirin) 81 Mg Tablet.dr 162 Mg PO DAILY 06/29/13 Reported Impression . 1. Dyspnea with increasing pedal edema, most likely secondary to biventricular heart failure. 2. Underlying obstructive sleep apnea/obesity hypoventilation syndrome with intolerance to CPAP. 3. Underlying diastolic heart failure with previous cardiac catheterization with a normal ejection fraction but evidence of increased left heart filling pressures. 4. Morbid obesity. 5. Abnormal chest x-ray consistent with congestive heart failure. Plan . 1. Continue with present Lasix 2. Follow BUN and creatinine. 3. Follow chest x-ray as needed 4. Continue oxygen at 4 liters. 5. Continue with present bronchodilator. 6. ok with MARCELINA Davis MD Aug 07, 2016 10:03
[2016-08-07] MEDS ORDERED: ASPI81TA2 PO (10:56)
[2016-08-07] MEDS ORDERED: FURO40TA4 PO (10:59)
[2016-08-07] MEDS ORDERED: METO25TA4 PO (11:00)
[2016-08-07] MEDS ORDERED: ISOS20TA2 PO (11:01)
[2016-08-07] MEDS ORDERED: OMEP40CA5 PO (11:46)
[2016-08-07] MEDS ORDERED: NITR0.4T SL (11:46)
[2016-08-07 11:50] VITALS: BP 119/72
--- NOTE | 2016-08-07 12:19 | DS ---
DATE OF DISCHARGE: 08/07/2016 HOSPITAL SUMMARY: A 76-year-old white female with history of mild coronary artery disease and pulmonary oxygen requirement, perhaps sarcoidosis, came in with increasing cough and shortness of breath. Chest x-ray showed mild congestive heart failure and no obvious fluid consolidations or pneumonias. Doppler studies of both lower extremities were negative for DVT. Chemistry profile was unremarkable. Lipid profile was very good with cholesterol of 161. TSH was normal at 1.46 and the CBC was normal as well. She was diuresed with IV Lasix versus with boluses and had good diuresis, though she still has lower extremity edema. Initial plan was to transfer to rehab and she and her daughter are considering going home instead at this point for cross considerations. Echocardiogram showed a good ejection fraction of 60% and no significant valvular pathology. FINAL DIAGNOSES: 1. Congestive heart failure, diastolic type, preserved ejection fraction. 2. Chronic hypoxias, likely secondary to obstructive sleep apnea. OPERATIONS, PROCEDURES, COMPLICATIONS: None. CONSULTATIONS: Dr. Hou and Dr. Schaefer. DISPOSITION: We will switch from torsemide to Lasix 40 mg twice a day along with home meds remaining the same and may need considering metolazone for further diuresis in the future. Rehab or home disposition will be decided today. Rest of meds remains the same. Low salt diet. Prognosis is guarded and she is a DNR by her own choice. AHMET SUAREZ MD DR: PHILLIP/annamarie JOB#: [id number] / [id number]
== END 2016-08-07 15:00 | disposition home health service (06) | DRG 291 ==
LOC: ER 20:54 → 2 SOUTH 22:03
PROVIDERS: ADMIT Family Medicine; ATTEND Family Medicine
DX: I50.33 Acute on chronic diastolic (congestive) heart failure (principal); J96.21 Acute and chronic respiratory failure with hypoxia; I13.0 Hypertensive heart and chronic kidney disease with heart failure and stage 1 through stage 4 chronic kidney disease, or unspecified chronic kidney disease; E66.2 Morbid (severe) obesity with alveolar hypoventilation; Z68.43 Body mass index [BMI] 50.0-59.9, adult; D86.0 Sarcoidosis of lung; E11.22 Type 2 diabetes mellitus with diabetic chronic kidney disease; E78.00 Pure hypercholesterolemia, unspecified; E78.5 Hyperlipidemia, unspecified; F32.9 Major depressive disorder, single episode, unspecified; F41.9 Anxiety disorder, unspecified; I25.10 Atherosclerotic heart disease of native coronary artery without angina pectoris; I27.2 Other secondary pulmonary hypertension; J44.9 Chronic obstructive pulmonary disease, unspecified; K21.9 Gastro-esophageal reflux disease without esophagitis; M10.9 Gout, unspecified; N18.3 Chronic kidney disease, stage 3 (moderate); Z82.3 Family history of stroke; Z99.81 Dependence on supplemental oxygen; Z88.5 Allergy status to narcotic agent; Z88.8 Allergy status to other drugs, medicaments and biological substances; M54.5 Low back pain
CPT/HCPCS: 36415; 71010; 80048; 80061; 83735; 83880; 84443; 84484; 85027; 93005; 93306; 93970; 94250; 94640; 94760; J1940; 97530; 97535; 99285-25

== ENCOUNTER 2016-08-18 11:18 | Inpatient (IN) | payer MEDICARE, OTHER ==
[~2016-08-18] VITALS: Ht 152.4 cm; Wt 117.5 kg
[~2016-08-18 11:18] MED LIST changes: +ASPI81TA2 PO; +FURO40TA4 PO; +ISOS30TA4 PO; +METO-269 PO; +METO25TA4 PO; +SERT100T PO
[2016-08-18] MEDS ORDERED: FUROSEMIDE 40 MG/4 ML VIAL. IVP ONE (11:30)
--- NOTE | 2016-08-18 11:35 | PHYS DOC ---
Past Medical History Past Medical History: High Cholesterol, Hypertension, Other Additional Past Medical Histor: sarcoidosis Past Surgical History: No Surgical History Alcohol Use: None Drug Use: None Adult General Chief Complaint Chief Complaint: SHORTNESS OF BREATH HPI HPI Patient is a 76 year old female who presents with shortness of breath and increased lower extremity edema. Patient does take daily Lasix and states she has been taking as directed. She also is chronically on oxygen secondary to sarcoidosis. She denies any known history of COPD or CHF. She denies any pain associated with her increased shortness of breath. No fevers, reports mild cough. Primary care doctor is Dr. Aric Suarez, textile machinery sales representative is Dr. eSth, rear admiral is Dr. lang. Past reports that she had O2 sats in the 70s and was wearing her oxygen, they placed her on nonrebreather and gave her breathing treatments with improvement of her O2 sats. Review of Systems Review of Systems Constitutional: Denies fever or chills [] Eyes: Denies change in visual acuity, redness, or eye pain [] HENT: Denies nasal congestion or sore throat [] Respiratory: Per history of present illness Cardiovascular: Denies chest pain, reports bilateral lower extremity edema GI: Denies abdominal pain, nausea, vomiting, bloody stools or diarrhea [] : Denies dysuria or hematuria [] Musculoskeletal: Denies back pain or joint pain [] Integument: Denies rash or skin lesions [] Neurologic: Denies headache, focal weakness or sensory changes [] Current Medications Current Medications Current Medications Medications (Trade) Dose Ordered Sig/Mike Start Time Stop Time Status Last Admin Dose Admin Albuterol Sulfate (Ventolin Neb Soln) 2.5 mg 1X ONCE 08/18/16 12:45 08/18/16 12:48 DC 08/18/16 12:51 2.5 MG Albuterol/ Ipratropium (Duoneb) 3 ml 1X ONCE 08/18/16 12:45 08/18/16 12:48 DC 08/18/16 12:51 3 ML Furosemide (Lasix) 40 mg 1X ONCE 08/18/16 11:30 08/18/16 11:33 DC 08/18/16 11:56 40 MG Allergies Allergies Allergies Coded Allergies Type Severity Reaction Last Updated Verified codeine Allergy Intermediate N7V 06/29/13 Yes phenobarbital Allergy Intermediate 08/06/16 Yes Physical Exam Physical Exam Constitutional: Well developed, well nourished, morbid obesity, speaks in nearly full sentences HENT: Normocephalic, atraumatic, bilateral external ears normal, oropharynx moist, no oral exudates, nose normal. [] Eyes: PERRLA, EOMI, conjunctiva normal, no discharge. [] Neck: Normal range of motion, no tenderness, supple, no stridor. [] Cardiovascular:Heart rate regular rhythm, no murmur [] Lungs & Thorax: Bilateral lower lobe rhonchi, crackles, moderate air movement, no appreciable wheeze Abdomen: Bowel sounds normal, soft, no tenderness, no masses, no pulsatile masses. [] Skin: Warm, dry, no erythema, no rash. [] Back: No tenderness, no CVA tenderness. [] Extremities: 2+ bilateral lower extremity edema without tenderness, no erythema , warm Neurologic: Alert and oriented X 3, normal motor function, normal sensory function, no focal deficits noted. [] Psychologic: Affect normal, judgement normal, mood normal. [] Current Patient Data Vital Signs Vital Signs Date Time Temp Pulse Resp B/P Pulse Ox O2 Delivery O2 Flow Rate FiO2 08/18/16 12:51 96 BiPAP/CPAP 08/18/16 11:58 74 24 142/83 08/18/16 11:18 98.3 4 98.3 Lab Values Laboratory Tests Test 08/18/16 12:20 08/18/16 12:25 White Blood Count 7.5x10^3/uL (4.0-11.0) Red Blood Count 3.84x10^6/uL (3.50-5.40) Hemoglobin 11.6g/dL (12.0-15.5) L Hematocrit 36.1% (36.0-47.0) Mean Corpuscular Volume 94fL (79-100) Mean Corpuscular Hemoglobin 30pg (25-35) Mean Corpuscular Hemoglobin Concent 32g/dL (31-37) Red Cell Distribution Width 15.2% (11.5-14.5) H Platelet Count 237x10^3/uL (140-400) Neutrophils (%) (Auto) 65% (31-73) Lymphocytes (%) (Auto) 21% (24-48) L Monocytes (%) (Auto) 9% (0-9) Eosinophils (%) (Auto) 5% (0-3) H Basophils (%) (Auto) 1% (0-3) Neutrophils # (Auto) 4.9x10^3uL (1.8-7.7) Lymphocytes # (Auto) 1.5x10^3/uL (1.0-4.8) Monocytes # (Auto) 0.7x10^3/uL (0.0-1.1) Eosinophils # (Auto) 0.4x10^3/uL (0.0-0.7) Basophils # (Auto) 0.0x10^3/uL (0.0-0.2) Prothrombin Time 14.5SEC (11.7-14.0) H Prothrombin Time INR 1.2 (0.8-1.1) H Sodium Level 141mmol/L (136-145) Potassium Level 4.4mmol/L (3.5-5.1) Chloride Level 100mmol/L (98-107) Carbon Dioxide Level 43mmol/L (21-32) H Anion Gap (6-14) Blood Urea Nitrogen 23mg/dL (7-20) H Creatinine 1.3mg/dL (0.6-1.0) H Estimated GFR (Cockcroft-Gault) 48.4 BUN/Creatinine Ratio 18 (6-20) Glucose Level 165mg/dL (70-99) H Calcium Level 8.9mg/dL (8.5-10.1) Magnesium Level 2.5mg/dL (1.8-2.4) H Total Bilirubin 0.6mg/dL (0.2-1.0) Aspartate Amino Transferase (AST) 20U/L (15-37) Alanine Aminotransferase (ALT) 31U/L (14-59) Alkaline Phosphatase 90U/L (46-116) Troponin I Quantitative 0.022ng/mL (0.000-0.055) RD-Som-Q-Type Natriuretic Peptide 3471pg/mL (0-124) H Total Protein 7.8g/dL (6.4-8.2) Albumin 2.9g/dL (3.4-5.0) L Albumin/Globulin Ratio 0.6 (1.0-1.7) L O2 Saturation 89% (92-99) L Arterial Blood pH 7.34 (7.35-7.45) L Arterial Blood pCO2 at Patient Temp 73mmHg (35-46) *H Arterial Blood pO2 at Patient Temp 60mmHg (65-108) L Arterial Blood HCO3 38mmol/L (21-28) H Arterial Blood Base Excess 10mmol/L (-3-3) H FiO2 40 Laboratory Tests 08/18/16 12:20 Laboratory Tests 08/18/16 12:20 EKG EKG 78 bpm, sinus, normal axis, PVCs present, QTC 478, no appreciable ST elevation or depression, nonischemic T waves, interpreted by al Heart monitor shows a sinus rhythm, no arrhythmia appreciated, interpreted by me SPO2 on nasal cannula oxygen with good waveform shows O2 of 89-91%, interpreted by me Radiology/Procedures Radiology/Procedures Chest x-ray: Indication shortness of breath and cough. A single view of the chest was obtained and is compared to a study 2 weeks ago. Mild enlargement of the cardiac silhouette is again seen. Changes suggesting congestive heart failure appear similar. There is no consolidated pneumonia significant pleural fluid collection or pneumothorax. Overall a significant change in the appearance of the chest is not seen. IMPRESSION: No significant change Course & Med Decision Making Course & Med Decision Making Pertinent Labs and Imaging studies reviewed. (See chart for details) Patient initiated on BiPAP, 40 mg IV Lasix given, lab work and chest x-ray ordered. Pt tolerating bipap well. Denies significant cough, symptoms appear most consistent with CHF. Pt feeling better, spoke with Dr. Suarez who accepted pt for admission. Dragon Disclaimer Dragon Disclaimer This electronic medical record was generated, in whole or in part, using a voice recognition dictation system. Departure Departure Impression: Primary Impression: Acute and chronic respiratory failure Additional Impression: CHF (congestive heart failure) Disposition: ADMITTED INPATIENT Admitting Physician: Aric Suarez Condition: STABLE Referrals: ARIC SUAREZ MD (PCP) Problem Qualifiers YASHIRA MILES MD August 18, 2016 11:35
--- NOTE | 2016-08-18 11:55 | RAD ---
Indication shortness of breath and cough. A single view of the chest was obtained and is compared to a study 2 weeks ago. Mild enlargement of the cardiac silhouette is again seen. Changes suggesting congestive heart failure appear similar. There is no consolidated pneumonia significant pleural fluid collection or pneumothorax. Overall a significant change in the appearance of the chest is not seen. IMPRESSION: No significant change
--- NOTE | 2016-08-18 12:07 | ACF ---
Admission Forms Criteria RESPIRATORY FAILURE [facility] Clinical Indications for Admission to Inpatient Care (Place 'X' for any and all applicable criteria): Hospital admission is needed for appropriate care of the patient because of acute respiratory failure or insufficiency as indicated by ANY ONE of the following(1)(2)(3)(4)(5)(6)(7)(8): [X]I. Mechanical ventilation needed (acute invasive or noninvasive) [ ]II. Severe ventilation deficit as indicated by ANY ONE of the following (9) [ ]a) Respiratory acidosis (pH less than 7.32 and partial pressure of carbon dioxide greater than 40 mm Hg (5.3 kPa)) [ ]b) Partial pressure of carbon dioxide greater than 44 mm Hg (5.9 kPa ) (new) [ ]c) Airflow measurements less than 25% of predicted (eg, peak expiratory flow rate less than 100 L/minute) [ ]d) Forced vital capacity less than 15 mL/kg of ideal body weight, or 50% decrease in vital capacity from baseline [ ]III. Noncardiac pulmonary edema not resolving with rapid emergency treatment (8) [ ]IV. Severe respiratory distress as indicated by ANY ONE of the following: [ ]a) Severe tachypnea (respiratory rate greater than 30, greater than 45 for 6-month-old, greater than 60 for ) [ ]b) Severe hypoxemia (partial pressure of oxygen less than 50 mm Hg ( 6.7 kPa) on greater than 50% oxygen or partial pressure of oxygen to FIO2 ratio less than 200) [ ]c) Mental status deterioration from respiratory disease [ ]V. Airway obstruction or inadequate protection [A](10)(11) The original [employer] content created by [employer] has been revised. The portions of the content which have been revised are identified through the use of italic text or in bold, and [employer] has neither reviewed nor approved the modified material. All other unmodified content is copyright [employer]. Please see references footnoted in the original [employer] edition 2016 Admission Criteria Met?: Yes PARMINDER UREÑA August 18, 2016 12:07
[2016-08-18 12:32] LABS: BASO % 1 % (0-3); EOS % 5 % (0-3); HEMATOCRIT 36.1 % (36.0-47.0); HEMOGLOBIN 11.6 g/dL (12.0-15.5); LYMPH # 1.5 x10^3/uL (1.0-4.8); LYMPH % 21 % (24-48); MEAN CORPUSCULAR HEMOGLOBIN 30 pg (25-35); MEAN CORPUSCULAR HGB CONC 32 g/dL (31-37); MEAN CORPUSCULAR VOLUME 94 fL (79-100); MONO % 9 % (0-9); NEUT % 65 % (31-73); PLATELET COUNT 237 x10^3/uL (140-400); RED BLOOD COUNT 3.84 x10^6/uL (3.50-5.40); RED CELL DISTRIBUTION WIDTH 15.2 % (11.5-14.5); WHITE BLOOD COUNT 7.5 x10^3/uL (4.0-11.0)
[2016-08-18 12:33] LABS: HCO3 ABG 38 mmol/L (21-28); PH ABG 7.34 (7.35-7.45); PO2 ABG 60 mmHg (65-108); SAT O2 ABG 89 % (92-99)
[2016-08-18 12:34] LABS: FIO2 ABG 40; PCO2 ABG 73 mmHg (35-46)
[2016-08-18] MEDS ORDERED: IPRATRPIUM/ALBUTEROL 0.5/2.5MG 3 ML NEBU. NEB ONE (12:45)
[2016-08-18] MEDS ORDERED: ALBUTEROL SULFATE 2.5 MG/3 ML NEBU. NEB ONE (12:45)
[2016-08-18 12:49] LABS: INR 1.2 (0.8-1.1); PROTHROMBIN TIME PATIENT 14.5 SEC (11.7-14.0)
[2016-08-18 12:50] LABS: BLOOD UREA NITROGEN 23 mg/dL (7-20); BUN/CREATININE RATIO 18 (6-20); CALCIUM 8.9 mg/dL (8.5-10.1); CARBON DIOXIDE 43 mmol/L (21-32); CHLORIDE 100 mmol/L (98-107); CREATININE 1.3 mg/dL (0.6-1.0); GFR 48.4; GLUCOSE 165 mg/dL (70-99); POTASSIUM 4.4 mmol/L (3.5-5.1); SODIUM 141 mmol/L (136-145)
[2016-08-18 12:54] LABS: ALBUMIN 2.9 g/dL (3.4-5.0); ALBUMIN/GLOBULIN RATIO 0.6 (1.0-1.7); ALK PHOS 90 U/L (46-116); ALT (SGPT) 31 U/L (14-59); AST (SGOT) 20 U/L (15-37); MAGNESIUM 2.5 mg/dL (1.8-2.4); TOTAL BILIRUBIN 0.6 mg/dL (0.2-1.0); TOTAL PROTEIN 7.8 g/dL (6.4-8.2)
--- NOTE | 2016-08-18 14:02 | EKG ---
[facility] [address] [place] [address] Test Date: 2016-08-18 Test Time: 11:26:10 Pat Name: HOPE SUAREZ Department: Room: 254 1 Gender: F [employer] Supervisor: : 1940 Requested By: YASHIRA MILES Order Number: [id number] Reading MD: Caro Izaguirre Measurements Intervals [place] Rate: 78 P: NV: QRS: 13 QRSD: 80 T: 24 QT: 416 QTc: 478 Interpretive Statements SINUS RHYTHM PVC POOR R-WAVE PROGRESSION Electronically Signed On 08-19-2016 20:38:35 CDT by Caro Izaguirre
[2016-08-18 15:37] LABS: HCO3 ABG 38 mmol/L (21-28); PH ABG 7.33 (7.35-7.45); PO2 ABG 68 mmHg (65-108); SAT O2 ABG 92 % (92-99)
[2016-08-18 15:38] LABS: FIO2 ABG 40; PCO2 ABG 73 mmHg (35-46)
--- NOTE | 2016-08-18 15:39 | PDOC ---
Provider Note Provider Note dictated MARCELINA KABA MD August 18, 2016 15:39
--- NOTE | 2016-08-18 15:49 | PDOC2 ---
CARDIAC CONSULT DATE OF CONSULT Date of Consult DATE: 08/18/16 TIME: 15:42 REASON FOR CONSULT Reason for Consult: CHF REFERRING PHYSICIAN Referring Physician: Dr. Pennington SOURCE Source: Chart review, Patient HISTORY OF PRESENT ILLNESS HISTORY OF PRESENT ILLNESS This is a 76 yo female, well known to use from recent admission, who presented with complaints of increased shortness of breath and LE edema. Recently admitted for decompensated HF and was aggressively diuresed and discharge home with family. HPI obtained from chart review as patient is drowsy and requiring continuous BiPAP, making communication difficult. Oxygen saturations noted in the 70's in [place]; was initially placed on nonrebreather and given respiratory treatment and eventually required BiPAP for respiratory support. Reports compliance with medications. PAST MEDICAL HISTORY Past Medical History Cardiovascular: CHF, HTN, Hyperlipidemia, Pulmonary hypertension, Other (ICM) Pulmonary: COPD, Other (sarcoidosis, JENELLE) GI: GERD Heme/Onc: No pertinent hx Hepatobiliary: No pertinent hx Psych: Anxiety, Depression Musculoskeletal: low back pain, Osteoarthritis Rheumatologic: Gout Infectious disease: No pertinent hx ENT: No pertinent hx Renal/: Chronic renal insuff Endocrine: Diabetes Dermatology: No pertinent hx PAST SURGICAL HISTORY Past Surgical History T & A FAMILY HISTORY Family History Cancer, Heart Disease, Stroke SOCIAL HISTORY Social History Smoke: No ALCOHOL: none Drugs: None Lives: with Family CURRENT MEDICATIONS CURRENT MEDICATIONS Current Medications Medications (Trade) Dose Ordered Sig/Mike Route PRN Reason Start Time Stop Time Status Last Admin Dose Admin Furosemide (Lasix) 40 mg 1X ONCE IVP 08/18/16 11:30 08/18/16 11:33 DC 08/18/16 11:56 Albuterol/ Ipratropium (Duoneb) 3 ml 1X ONCE NEB 08/18/16 12:45 08/18/16 12:48 DC 08/18/16 12:51 Albuterol Sulfate (Ventolin Neb Soln) 2.5 mg 1X ONCE NEB 08/18/16 12:45 08/18/16 12:48 DC 08/18/16 12:51 ALLERGIES ALLERGIES: Coded Allergies: codeine (Verified Allergy, Intermediate, N7V, 06/29/13) phenobarbital (Verified Allergy, Intermediate, 08/06/16) ROS Review of System unobtainable. PHYSICAL EXAM PHYSICAL EXAM General: Alert, Oriented X3, Cooperative, No acute distress HEENT: Atraumatic, Mucous membr. moist/pink Lungs: Other (diminished bases ) Heart: Regular rate, Normal S1, Normal S2, No murmurs Abdomen: Soft, Other (obese ) Extremities: Other (2+ bilateral LE pitting edema. 1+ bilateral DP pulses ) Skin: No significant lesion Neuro: Normal speech, Sensation intact Psych/Mental Status: Mental status NL, Mood NL VITALS VITALS Vital Signs Date Time Temp Pulse Resp B/P Pulse Ox O2 Delivery O2 Flow Rate FiO2 08/18/16 14:13 62 18 102/65 99 BiPAP/CPAP 08/18/16 11:18 98.3 4 98.3 LABS Lab: Laboratory Tests Test 08/18/16 12:20 08/18/16 12:25 08/18/16 15:25 White Blood Count 7.5x10^3/uL (4.0-11.0) Red Blood Count 3.84x10^6/uL (3.50-5.40) Hemoglobin 11.6g/dL (12.0-15.5) Hematocrit 36.1% (36.0-47.0) Mean Corpuscular Volume 94fL (79-100) Mean Corpuscular Hemoglobin 30pg (25-35) Mean Corpuscular Hemoglobin Concent 32g/dL (31-37) Red Cell Distribution Width 15.2% (11.5-14.5) Platelet Count 237x10^3/uL (140-400) Neutrophils (%) (Auto) 65% (31-73) Lymphocytes (%) (Auto) 21% (24-48) Monocytes (%) (Auto) 9% (0-9) Eosinophils (%) (Auto) 5% (0-3) Basophils (%) (Auto) 1% (0-3) Neutrophils # (Auto) 4.9x10^3uL (1.8-7.7) Lymphocytes # (Auto) 1.5x10^3/uL (1.0-4.8) Monocytes # (Auto) 0.7x10^3/uL (0.0-1.1) Eosinophils # (Auto) 0.4x10^3/uL (0.0-0.7) Basophils # (Auto) 0.0x10^3/uL (0.0-0.2) Prothrombin Time 14.5SEC (11.7-14.0) Prothromb Time International Ratio 1.2 (0.8-1.1) Sodium Level 141mmol/L (136-145) Potassium Level 4.4mmol/L (3.5-5.1) Chloride Level 100mmol/L (98-107) Carbon Dioxide Level 43mmol/L (21-32) Anion Gap (6-14) Blood Urea Nitrogen 23mg/dL (7-20) Creatinine 1.3mg/dL (0.6-1.0) Estimated GFR (Cockcroft-Gault) 48.4 BUN/Creatinine Ratio 18 (6-20) Glucose Level 165mg/dL (70-99) Calcium Level 8.9mg/dL (8.5-10.1) Magnesium Level 2.5mg/dL (1.8-2.4) Total Bilirubin 0.6mg/dL (0.2-1.0) Aspartate Amino Transf (AST/SGOT) 20U/L (15-37) Alanine Aminotransferase (ALT/SGPT) 31U/L (14-59) Alkaline Phosphatase 90U/L (46-116) Troponin I Quantitative 0.022ng/mL (0.000-0.055) NR-[id number]-Type Natriuretic Peptide 3471pg/mL (0-124) Total Protein 7.8g/dL (6.4-8.2) Albumin 2.9g/dL (3.4-5.0) Albumin/Globulin Ratio 0.6 (1.0-1.7) O2 Saturation 89% (92-99) 92% (92-99) Arterial Blood pH 7.34 (7.35-7.45) 7.33 (7.35-7.45) Arterial Blood pCO2 at Patient Temp 73mmHg (35-46) 73mmHg (35-46) Arterial Blood pO2 at Patient Temp 60mmHg (65-108) 68mmHg (65-108) Arterial Blood HCO3 38mmol/L (21-28) 38mmol/L (21-28) Arterial Blood Base Excess 10mmol/L (-3-3) 9mmol/L (-3-3) FiO2 40 40 ECHOCARDIOGRAM ECHOCARDIOGRAM <Conclusion> The left ventricular systolic function is normal and the ejection fraction is within normal range. The Ejection Fraction is 60-65%. There is grossly normal LV segmental wall motion. Technically difficult study due to body habitus. DATE: 08/04/16 1602 <Conclusion> The left ventricle is normal size. Left ventricle systolic function is normal. The Ejection Fraction is 50-55%. There is no significant aortic valvular stenosis. Doppler and Color Flow revealed no significant aortic regurgitation. Doppler and Color Flow revealed mild mitral regurgitation. Doppler and Color Flow revealed mild tricuspid regurgitation. The PA pressure was estimated at 43 mmHg. DATE: 01/16/16 1123 HEART CATH HEART CATH CORONARY ANGIOGRAPHY LM is a large caliber vessel with an ostial 20% stenosis. LAD is a moderate caliber vessel with mild luminal irregularities. Ramus is a moderate caliber proximally bifurcating vessel with mild luminal irregularities. LCx is a moderate caliber non-dominant vessel with a mid 30% stenosis. RCA is a moderate caliber dominant vessel with a mid long 50% stenosis. The distal vessel is free of significant obstructive disease. There is a prominent RV marginal branch suggestive of RV hypertrophy. Conclusion 1. Elevated left ventricular filling pressure. 2. Non-obstructive coronary artery disease. DATE: 05/06/15 1235 ASSESSMENT/PLAN ASSESSMENT/PLAN 1. Acute on chronic diastolic heart failure; LVEF 60-65% 2. Acute on chronic respiratory failure 3. Sarcoidosis 4. Pulmonary HTN; PAP 43 5. JENELLE; intolerant of CPAP 6. CAD, non-obstructive 7. Hypertension 8. CKD 9. Diabetes Recommendations Continue diuresis with monitor of renal function. Consider addition of metolazone. 2000 cc FR. Daily weight, accurate I and O. Continue secondary prevention ASA, BB, and nitrate. Lipids on goal. Supportive care from a CV perspective. respiratory optimization per pulmonary Problems: PETER MUJICA APRN August 18, 2016 15:49
--- NOTE | 2016-08-18 16:15 | CONS ---
DATE OF CONSULTATION: 08/18/2016 ATTENDING PHYSICIAN: Dr. Aric Juarez. REASON FOR CONSULTATION: Respiratory failure. HISTORY OF PRESENT ILLNESS: The patient is very well known to me. She is a 76-year-old morbidly obese patient who has chronic multiple pulmonary problems including chronic hypoxic respiratory failure, underlying morbid obesity, obstructive sleep apnea with noncompliance to CPAP and suspected sarcoidosis with mild interstitial lung disease and also tiny lung nodules. She also has cough-variant asthma. The patient was brought back to the hospital today after she was noted to have altered mental status recently. She was also short of breath. She has a mild cough which is productive of some light sputum. No fever, no chills. The daughter said she had sent a urine for culture 2 days ago by Home Health, but she never heard the results. The patient's white cell count was normal. In the ER, no fever was recorded. Her chest x-ray revealed bilateral interstitial infiltrates which are unchanged since her last month chest x-ray. I have reviewed her workup from her previous admissions. The patient had a left heart catheterization in April 2015. At that time, she had left ventricular end diastolic pressure of 25, and there was nonobstructive coronary artery disease. EF was 60% to 65%, while the latest echo was with a pulmonary artery pressure of 43. She has suspected sarcoidosis. She has unchanged 3+ pitting edema. The patient's arterial blood gases were highly abnormal and showed a pH of 7.34, pCO2 of 73, and a pO2 of 60 on 40% FiO2. At that time, she has been placed on BiPAP, and her rate has increased along with IPAP, and a repeat blood gas has been ordered and is pending. PAST MEDICAL HISTORY: Significant for history of dyslipidemia, hypertension, history of chronic hypoxic respiratory failure, 2 liters at rest and 4 liters with exercise; history of mild interstitial lung disease related to suspected sarcoidosis with tiny, stable, unchanging nodules. History of cough-variant asthma and history of obstructive sleep apnea with noncompliance of CPAP. History of previous cardiac catheterization with evidence of high left ventricular end-diastolic pressure. PAST SURGICAL HISTORY: Previous cardiac catheterization. ALLERGIES: CODEINE AND PHENOBARB. CURRENT MEDICATIONS: Reviewed as listed in the [facility] including one dose of Lasix that she received in the ER. SOCIAL HISTORY: Nonsmoker. REVIEW OF SYSTEMS: Unable to obtain from the patient due to her encephalopathy, but all the questions were answered from the daughter who was at the bedside and gave all the history. PHYSICAL EXAMINATION: GENERAL: She is lethargic, but arousable. VITAL SIGNS: Blood pressure is 102/65, afebrile, pulse ox 99% on current BiPAP settings. HEENT: Sclerae nonicteric. NECK: Supple. LUNGS: Diminished breath sounds. CARDIOVASCULAR: Regular rate and rhythm. ABDOMEN: Soft, obese. EXTREMITIES: Bilateral 3+ pitting edema. LABORATORY DATA: Reviewed. ABGs as discussed in my history of present illness. BUN 23, creatinine 1.3. ProBNP is 3471. INR is 1.2. White cell count 7.5, hemoglobin 11.6, and platelets are 237. IMPRESSION: 1. Acute on chronic hypercapnic and hypoxic respiratory failure. I suspect secondary to acute on chronic cor pulmonale. Cannot exclude diastolic heart failure. Previous cardiac cath with high left ventricular end diastolic pressures 2. History of obstructive sleep apnea/obesity hypoventilation syndrome with intolerance to BiPAP/CPAP in the past. 3. History of chronic mild interstitial lung disease with stable mild ground-glass infiltrates and tiny lung nodules. Highly-suspected sarcoidosis. Did not require any steroid treatment due to stability of the parenchymal disease. 4. Abnormal chest x-ray with persistent bilateral interstitial infiltrates. Once she is stabilized, I will obtain followup CT chest and may do comparison with the old one. RECOMMENDATIONS: 1. Continue with present BiPAP and adjust IPAP and respiratory rate based on ABGs. 2. Cautious diuresis keeping in view of her blood pressure and urine output. 3. Urine culture has been sent to rule out any occult infection. 4. Nebulizer treatments. 5. Noncontrast CT of the chest once she is stable. 6. Nebulizer treatments. Discussed with the patient's daughter at the bedside. I discussed with RN and RT. Critical care time was 38 minutes. MARCELINA KABA MD DR: LETI/annamarie JOB#: [id number] / [id number] SANG
[2016-08-18 16:27] LABS: BILIRUBIN,URINE NEGATIVE (NEG); GLUCOSE,URINE NEGATIVE (NEG); NITRITE,URINE NEGATIVE (NEG); PH,URINE 7.5; PROTEIN,URINE NEGATIVE (NEG-TRACE); UROBILINOGEN,URINE 0.2 mg/dL (0.2 mg/dL)
[2016-08-18 16:35] LABS: BACTERIA,URINE 0 /HPF (0-FEW); SQUAMOUS EPITHELIAL CELL,UR OCC /LPF; WBC,URINE RARE /HPF (0-4)
[2016-08-18] MEDS ORDERED: ASPIRIN ENTERIC COATED 81 MG TABLET.DR. PO SCH (17:00)
[2016-08-18 17:51] VITALS: BP 112/67
[2016-08-18] MEDS ORDERED: LORazepam 1 MG TABLET PO PRN (18:00)
[2016-08-18] MEDS ORDERED: HYDROcodone/APAP 7.5/325MG 1 TAB TABLET PO PRN (18:00)
[2016-08-18] MEDS ORDERED: FUROSEMIDE 40 MG TABLET. PO SCH (18:00)
[2016-08-18] MEDS: FUROSEMIDE 40 MG/4 ML VIAL. IVP SCH (18:34)
[2016-08-18] MEDS: POTASSIUM CHLORIDE 20 MEQ TABLET.ER. PO SCH (18:35)
[2016-08-18 19:47] VITALS: BP 110/62
[2016-08-18] MEDS: ALBUTEROL SULFATE 2.5 MG/3 ML NEBU. NEB SCH (19:55)
[2016-08-18] MEDS: BUDESONIDE 0.5 MG/2 ML NEBU. NEB SCH (19:55)
[2016-08-18] MEDS: DICLOFENAC SODIUM 1% TOPICAL GEL 100GM TUBE. TP SCH (21:00)
[2016-08-18] MEDS ORDERED: NON FORMULARY ITEM (Budesonide/Formoterol Fumarate (Symbicort 160-4.5 Mcg Inhaler) 2 PUFF) IH SCH (21:00)
[2016-08-18] MEDS: ISOSORBIDE MONONITRATE 20 MG TABLET PO SCH (21:00)
[2016-08-18] MEDS: METOPROLOL TART IMMED RELEASE 25 MG TABLET. PO SCH (21:35)
[2016-08-18] MEDS: SIMVASTATIN 20 MG TABLET PO SCH (21:36)
[2016-08-18 23:18] VITALS: BP 108/66
[2016-08-19 03:08] VITALS: BP 120/73
[2016-08-19 07:00] VITALS: BP 120/70
[2016-08-19] MEDS: PANTOPRAZOLE 40 MG TABLET.DR. PO SCH (07:30)
[2016-08-19] MEDS: ALBUTEROL SULFATE 2.5 MG/3 ML NEBU. NEB SCH ×4 (07:50→20:05)
[2016-08-19] MEDS: BUDESONIDE 0.5 MG/2 ML NEBU. NEB SCH ×2 (07:50→20:05)
[2016-08-19 08:10] LABS: HCO3 ABG 43 mmol/L (21-28); PH ABG 7.38 (7.35-7.45); PO2 ABG 62 mmHg (65-108); SAT O2 ABG 90 % (92-99)
[2016-08-19 08:12] LABS: FIO2 ABG 40; PCO2 ABG 74 mmHg (35-46)
--- NOTE | 2016-08-19 08:47 | PDOC ---
Provider Note Provider Note [id number] AHMET SUAREZ MD August 19, 2016 08:47
[2016-08-19] MEDS: POTASSIUM CHLORIDE 20 MEQ TABLET.ER. PO SCH ×2 (08:59→18:40)
[2016-08-19] MEDS: METOPROLOL TART IMMED RELEASE 25 MG TABLET. PO SCH ×2 (08:59→20:58)
[2016-08-19] MEDS: ALLOPURINOL 100 MG TABLET. PO SCH (08:59)
[2016-08-19] MEDS: ISOSORBIDE MONONITRATE 20 MG TABLET PO SCH ×2 (08:59→20:57)
[2016-08-19] MEDS ORDERED: MECLIZINE HCL 12.5 MG TABLET. PO SCH (09:00)
[2016-08-19] MEDS: DICLOFENAC SODIUM 1% TOPICAL GEL 100GM TUBE. TP SCH ×4 (09:00→21:00)
[2016-08-19] MEDS: ASPIRIN CHEWABLE 81 MG TABLET. PO SCH (09:00)
[2016-08-19] MEDS: FUROSEMIDE 40 MG/4 ML VIAL. IVP SCH ×2 (09:00→14:26)
[2016-08-19] MEDS: SERTRALINE 50 MG TABLET. PO SCH (09:00)
[2016-08-19] MEDS ORDERED: metOLazone 2.5 MG TABLET PO ONE (09:30)
--- NOTE | 2016-08-19 10:04 | HP ---
ADMIT DATE: 08/18/2016 CHIEF COMPLAINT: Shortness of breath. HISTORY OF PRESENT ILLNESS: A 76-year-old black female with a history of untreated sleep apnea, probable sarcoidosis and cor pulmonale and mild coronary artery disease, came in with increasing shortness of breath and confusion despite home diuretic therapy. She had a mild degree of respiratory acidosis mainly compensated and BiPAP substantially better. PAST MEDICAL HISTORY: Well documented in the old records. ALLERGIES: CODEINE. SOCIAL HISTORY: , lives with family, known very physically inactive. FAMILY HISTORY: Unremarkable. REVIEW OF SYSTEMS: No other complaints. OBJECTIVE: ENT: All within normal limits. NECK: No thyroid enlargement, JVD, or nodes. LUNGS: Decreased breath sounds at the bases. CARDIOVASCULAR: Regular rate. No irregular beat or murmur. ABDOMEN: Obese, soft, nontender. EXTREMITIES: 2-3+ pitting pretibial edema to the knees. Pedal pulses diminished. No joint or skin lesions. NEUROLOGIC: Physiologic. ASSESSMENT: Suspect this is mainly cor pulmonale and respiratory acidosis secondary to untreated sleep apnea. She may have a component of sarcoidosis and does have mild coronary artery disease. Systolic ejection fraction is good and degree of diastolic dysfunction is not as severe as symptoms would account for. PLAN: Continue BiPAP and other meds as listed. AHMET SUAREZ MD DR: PHILLIP/annamarie JOB#: [id number] / [id number]
--- NOTE | 2016-08-19 10:20 | PDOC ---
YAIR XIAO DRAWING HAND 08/19/16 1020: CARDIO Progress Notes Date and Time Date of Service 08/19/2016 Time of Evaluation 1020 Subjective Subjective: No Chest Pain, No Palpitations, No Dizziness, Other (dyspnea improved) Vitals Vitals Vital Signs Date Time Temp Pulse Resp B/P Pulse Ox O2 Delivery O2 Flow Rate FiO2 08/19/16 08:59 73 120/70 08/19/16 07:50 93 BiPAP/CPAP 08/19/16 07:00 98.2 24 98.2 08/18/16 20:00 4.0 Weight Weight [ ] Input and Output Intake and Output Intake and Output 08/19/16 06:59 Output Total 1450 ml Balance -1450 ml Output Urine Total 1450 ml Laboratory Labs Laboratory Tests Test 08/18/16 12:20 08/18/16 12:25 08/18/16 15:25 08/18/16 15:45 White Blood Count 7.5x10^3/uL (4.0-11.0) Red Blood Count 3.84x10^6/uL (3.50-5.40) Hemoglobin 11.6g/dL (12.0-15.5) Hematocrit 36.1% (36.0-47.0) Mean Corpuscular Volume 94fL (79-100) Mean Corpuscular Hemoglobin 30pg (25-35) Mean Corpuscular Hemoglobin Concent 32g/dL (31-37) Red Cell Distribution Width 15.2% (11.5-14.5) Platelet Count 237x10^3/uL (140-400) Neutrophils (%) (Auto) 65% (31-73) Lymphocytes (%) (Auto) 21% (24-48) Monocytes (%) (Auto) 9% (0-9) Eosinophils (%) (Auto) 5% (0-3) Basophils (%) (Auto) 1% (0-3) Neutrophils # (Auto) 4.9x10^3uL (1.8-7.7) Lymphocytes # (Auto) 1.5x10^3/uL (1.0-4.8) Monocytes # (Auto) 0.7x10^3/uL (0.0-1.1) Eosinophils # (Auto) 0.4x10^3/uL (0.0-0.7) Basophils # (Auto) 0.0x10^3/uL (0.0-0.2) Prothrombin Time 14.5SEC (11.7-14.0) Prothromb Time International Ratio 1.2 (0.8-1.1) Sodium Level 141mmol/L (136-145) Potassium Level 4.4mmol/L (3.5-5.1) Chloride Level 100mmol/L (98-107) Carbon Dioxide Level 43mmol/L (21-32) Anion Gap (6-14) Blood Urea Nitrogen 23mg/dL (7-20) Creatinine 1.3mg/dL (0.6-1.0) Estimated GFR (Cockcroft-Gault) 48.4 BUN/Creatinine Ratio 18 (6-20) Glucose Level 165mg/dL (70-99) Calcium Level 8.9mg/dL (8.5-10.1) Magnesium Level 2.5mg/dL (1.8-2.4) Total Bilirubin 0.6mg/dL (0.2-1.0) Aspartate Amino Transf (AST/SGOT) 20U/L (15-37) Alanine Aminotransferase (ALT/SGPT) 31U/L (14-59) Alkaline Phosphatase 90U/L (46-116) Troponin I Quantitative 0.022ng/mL (0.000-0.055) LK-Qja-J-Type Natriuretic Peptide 3471pg/mL (0-124) Total Protein 7.8g/dL (6.4-8.2) Albumin 2.9g/dL (3.4-5.0) Albumin/Globulin Ratio 0.6 (1.0-1.7) O2 Saturation 89% (92-99) 92% (92-99) Arterial Blood pH 7.34 (7.35-7.45) 7.33 (7.35-7.45) Arterial Blood pCO2 at Patient Temp 73mmHg (35-46) 73mmHg (35-46) Arterial Blood pO2 at Patient Temp 60mmHg (65-108) 68mmHg (65-108) Arterial Blood HCO3 38mmol/L (21-28) 38mmol/L (21-28) Arterial Blood Base Excess 10mmol/L (-3-3) 9mmol/L (-3-3) FiO2 40 40 Urine Collection Type Unknown Urine Color Straw Urine Clarity Clear Urine pH 7.5 Urine Specific [place] 1.010 Urine Protein Negativemg/dL (NEG-TRACE) Urine Glucose (UA) Negativemg/dL (NEG) Urine Ketones (Stick) Negativemg/dL (NEG) Urine Blood Moderate (NEG) Urine Nitrite Negative (NEG) Urine Bilirubin Negative (NEG) Urine Urobilinogen Dipstick 0.2mg/dL (0.2 mg/dL) Urine Leukocyte Esterase Negative (NEG) Urine RBC 11-20/HPF (0-2) Urine WBC Rare/HPF (0-4) Urine Squamous Epithelial Cells Occ/LPF Urine Bacteria 0/HPF (0-FEW) Urine Mucus Slight/LPF Test 08/19/16 06:00 O2 Saturation 90% (92-99) Arterial Blood pH 7.38 (7.35-7.45) Arterial Blood pCO2 at Patient Temp 74mmHg (35-46) Arterial Blood pO2 at Patient Temp 62mmHg (65-108) Arterial Blood HCO3 43mmol/L (21-28) Arterial Blood Base Excess 15mmol/L (-3-3) FiO2 40 Physical Exam HEENT: Neck Supple W Full Motion Chest: Symmetric LUNGS: Other (posterior crackles) Heart: S1S2, RRR Abdomen: Soft N/T, Other (truncal obesity) Extremities: Other (2+ bilateral lower extremity edema) Neurology: alert, oriented, follow commands Assessment Assessment 1. Acute on chronic diastolic heart failure preserved LV function continue diuresis 2. Acute on chronic respiratory failure with pulm HTN and untreated JENELLE off bi-pap per PULM 3. CAD non-obstructive medical management 4. Hypertension controlled with medications 5. Sarcoidosis FELICIA FIGUEROA MD 08/19/165: CARDIO Progress Notes Plan Plan Pt. seen and examined. AGree with above TRAFFIC CONTROL SUPERVISOR note. Continue diuresis. Etiology of recurrent HF is unclear. Patient and family report compliance. May simply be advanced diastolic disease. Will follow along. May benefit from SNU. d/w with family YAIR XIAO KRYSTA August 19, 2016 10:20 FELICIA FIGUEROA MD August 19, 2016 21:25
[2016-08-19 11:00] VITALS: BP 124/67
--- NOTE | 2016-08-19 11:03 | PDOC ---
PULMONARY PROGRESS NOTES Subjective fully awake off BIPAP ABG improved Vitals Vital Signs Date Time Temp Pulse Resp B/P Pulse Ox O2 Delivery O2 Flow Rate FiO2 08/19/16 08:59 73 120/70 08/19/16 07:50 93 BiPAP/CPAP 08/19/16 07:00 98.2 24 98.2 08/18/16 20:00 4.0 General: Alert, No acute distress Lungs: Other (decrease bs) Cardiovascular: S1 Abdomen: Soft, Non-tender Extremities: Other (2+edema) Labs Laboratory Tests Test 08/18/16 12:20 08/18/16 12:25 08/18/16 15:25 08/18/16 15:45 White Blood Count 7.5x10^3/uL (4.0-11.0) Red Blood Count 3.84x10^6/uL (3.50-5.40) Hemoglobin 11.6g/dL (12.0-15.5) Hematocrit 36.1% (36.0-47.0) Mean Corpuscular Volume 94fL (79-100) Mean Corpuscular Hemoglobin 30pg (25-35) Mean Corpuscular Hemoglobin Concent 32g/dL (31-37) Red Cell Distribution Width 15.2% (11.5-14.5) Platelet Count 237x10^3/uL (140-400) Neutrophils (%) (Auto) 65% (31-73) Lymphocytes (%) (Auto) 21% (24-48) Monocytes (%) (Auto) 9% (0-9) Eosinophils (%) (Auto) 5% (0-3) Basophils (%) (Auto) 1% (0-3) Neutrophils # (Auto) 4.9x10^3uL (1.8-7.7) Lymphocytes # (Auto) 1.5x10^3/uL (1.0-4.8) Monocytes # (Auto) 0.7x10^3/uL (0.0-1.1) Eosinophils # (Auto) 0.4x10^3/uL (0.0-0.7) Basophils # (Auto) 0.0x10^3/uL (0.0-0.2) Prothrombin Time 14.5SEC (11.7-14.0) Prothromb Time International Ratio 1.2 (0.8-1.1) Sodium Level 141mmol/L (136-145) Potassium Level 4.4mmol/L (3.5-5.1) Chloride Level 100mmol/L (98-107) Carbon Dioxide Level 43mmol/L (21-32) Anion Gap (6-14) Blood Urea Nitrogen 23mg/dL (7-20) Creatinine 1.3mg/dL (0.6-1.0) Estimated GFR (Cockcroft-Gault) 48.4 BUN/Creatinine Ratio 18 (6-20) Glucose Level 165mg/dL (70-99) Calcium Level 8.9mg/dL (8.5-10.1) Magnesium Level 2.5mg/dL (1.8-2.4) Total Bilirubin 0.6mg/dL (0.2-1.0) Aspartate Amino Transf (AST/SGOT) 20U/L (15-37) Alanine Aminotransferase (ALT/SGPT) 31U/L (14-59) Alkaline Phosphatase 90U/L (46-116) Troponin I Quantitative 0.022ng/mL (0.000-0.055) DU-Uvg-Y-Type Natriuretic Peptide 3471pg/mL (0-124) Total Protein 7.8g/dL (6.4-8.2) Albumin 2.9g/dL (3.4-5.0) Albumin/Globulin Ratio 0.6 (1.0-1.7) O2 Saturation 89% (92-99) 92% (92-99) Arterial Blood pH 7.34 (7.35-7.45) 7.33 (7.35-7.45) Arterial Blood pCO2 at Patient Temp 73mmHg (35-46) 73mmHg (35-46) Arterial Blood pO2 at Patient Temp 60mmHg (65-108) 68mmHg (65-108) Arterial Blood HCO3 38mmol/L (21-28) 38mmol/L (21-28) Arterial Blood Base Excess 10mmol/L (-3-3) 9mmol/L (-3-3) FiO2 40 40 Urine Collection Type Unknown Urine Color Straw Urine Clarity Clear Urine pH 7.5 Urine Specific [place] 1.010 Urine Protein Negativemg/dL (NEG-TRACE) Urine Glucose (UA) Negativemg/dL (NEG) Urine Ketones (Stick) Negativemg/dL (NEG) Urine Blood Moderate (NEG) Urine Nitrite Negative (NEG) Urine Bilirubin Negative (NEG) Urine Urobilinogen Dipstick 0.2mg/dL (0.2 mg/dL) Urine Leukocyte Esterase Negative (NEG) Urine RBC 11-20/HPF (0-2) Urine WBC Rare/HPF (0-4) Urine Squamous Epithelial Cells Occ/LPF Urine Bacteria 0/HPF (0-FEW) Urine Mucus Slight/LPF Test 08/19/16 06:00 O2 Saturation 90% (92-99) Arterial Blood pH 7.38 (7.35-7.45) Arterial Blood pCO2 at Patient Temp 74mmHg (35-46) Arterial Blood pO2 at Patient Temp 62mmHg (65-108) Arterial Blood HCO3 43mmol/L (21-28) Arterial Blood Base Excess 15mmol/L (-3-3) FiO2 40 Laboratory Tests Test 08/18/16 12:20 08/18/16 12:25 08/18/16 15:25 08/18/16 15:45 White Blood Count 7.5x10^3/uL (4.0-11.0) Red Blood Count 3.84x10^6/uL (3.50-5.40) Hemoglobin 11.6g/dL (12.0-15.5) Hematocrit 36.1% (36.0-47.0) Mean Corpuscular Volume 94fL (79-100) Mean Corpuscular Hemoglobin 30pg (25-35) Mean Corpuscular Hemoglobin Concent 32g/dL (31-37) Red Cell Distribution Width 15.2% (11.5-14.5) Platelet Count 237x10^3/uL (140-400) Neutrophils (%) (Auto) 65% (31-73) Lymphocytes (%) (Auto) 21% (24-48) Monocytes (%) (Auto) 9% (0-9) Eosinophils (%) (Auto) 5% (0-3) Basophils (%) (Auto) 1% (0-3) Neutrophils # (Auto) 4.9x10^3uL (1.8-7.7) Lymphocytes # (Auto) 1.5x10^3/uL (1.0-4.8) Monocytes # (Auto) 0.7x10^3/uL (0.0-1.1) Eosinophils # (Auto) 0.4x10^3/uL (0.0-0.7) Basophils # (Auto) 0.0x10^3/uL (0.0-0.2) Prothrombin Time 14.5SEC (11.7-14.0) Prothromb Time International Ratio 1.2 (0.8-1.1) Sodium Level 141mmol/L (136-145) Potassium Level 4.4mmol/L (3.5-5.1) Chloride Level 100mmol/L (98-107) Carbon Dioxide Level 43mmol/L (21-32) Anion Gap (6-14) Blood Urea Nitrogen 23mg/dL (7-20) Creatinine 1.3mg/dL (0.6-1.0) Estimated GFR (Cockcroft-Gault) 48.4 BUN/Creatinine Ratio 18 (6-20) Glucose Level 165mg/dL (70-99) Calcium Level 8.9mg/dL (8.5-10.1) Magnesium Level 2.5mg/dL (1.8-2.4) Total Bilirubin 0.6mg/dL (0.2-1.0) Aspartate Amino Transf (AST/SGOT) 20U/L (15-37) Alanine Aminotransferase (ALT/SGPT) 31U/L (14-59) Alkaline Phosphatase 90U/L (46-116) Troponin I Quantitative 0.022ng/mL (0.000-0.055) WJ-Rrj-X-Type Natriuretic Peptide 3471pg/mL (0-124) Total Protein 7.8g/dL (6.4-8.2) Albumin 2.9g/dL (3.4-5.0) Albumin/Globulin Ratio 0.6 (1.0-1.7) O2 Saturation 89% (92-99) 92% (92-99) Arterial Blood pH 7.34 (7.35-7.45) 7.33 (7.35-7.45) Arterial Blood pCO2 at Patient Temp 73mmHg (35-46) 73mmHg (35-46) Arterial Blood pO2 at Patient Temp 60mmHg (65-108) 68mmHg (65-108) Arterial Blood HCO3 38mmol/L (21-28) 38mmol/L (21-28) Arterial Blood Base Excess 10mmol/L (-3-3) 9mmol/L (-3-3) FiO2 40 40 Urine Collection Type Unknown Urine Color Straw Urine Clarity Clear Urine pH 7.5 Urine Specific [place] 1.010 Urine Protein Negativemg/dL (NEG-TRACE) Urine Glucose (UA) Negativemg/dL (NEG) Urine Ketones (Stick) Negativemg/dL (NEG) Urine Blood Moderate (NEG) Urine Nitrite Negative (NEG) Urine Bilirubin Negative (NEG) Urine Urobilinogen Dipstick 0.2mg/dL (0.2 mg/dL) Urine Leukocyte Esterase Negative (NEG) Urine RBC 11-20/HPF (0-2) Urine WBC Rare/HPF (0-4) Urine Squamous Epithelial Cells Occ/LPF Urine Bacteria 0/HPF (0-FEW) Urine Mucus Slight/LPF Test 08/19/16 06:00 O2 Saturation 90% (92-99) Arterial Blood pH 7.38 (7.35-7.45) Arterial Blood pCO2 at Patient Temp 74mmHg (35-46) Arterial Blood pO2 at Patient Temp 62mmHg (65-108) Arterial Blood HCO3 43mmol/L (21-28) Arterial Blood Base Excess 15mmol/L (-3-3) FiO2 40 Medications Active Scripts Medications Dose Route/Sig Days Date Category Omeprazole 40 Mg Capsule.dr 40 Mg PO DAILY 08/07/16 Reported Nitrostat (Nitroglycerin) 0.4 Mg Tab.subl 1 Tab SL UD 08/07/16 Reported Isosorbide Mononitrate 20 Mg Tablet 20 Mg PO BID 08/07/16 Reported Metoprolol Tartrate 25 Mg Tablet 1 Tab PO BID 08/07/16 Reported Furosemide 40 Mg Tablet 40 Mg PO BID 08/07/16 Reported Aspirin 81 Mg Tab.chew 1 Tab PO DAILY 08/07/16 Reported Symbicort 160-4.5 Mcg Inhaler (Budesonide/Formoterol Fumarate) 10.2 Gm Hfa.aer.ad 2 Puff IH BID 08/04/16 Reported Zoloft (Sertraline Hcl) 100 Mg Tablet 100 Mg PO DAILY 08/04/16 Reported Voltaren (Diclofenac Sodium) 100 Gm Gel..gram. 1 Gm TP QID 06/25/14 Reported Hydrocodone-Apap 7.5-325 (Hydrocodone Bit/Acetaminophen) 1 Each Tablet 1 Tab PO PRN Q6HRS PRN 06/25/14 Reported Simvastatin 20 Mg Tablet 20 Mg PO HS 06/25/14 Reported Klor-Con M20 (Potassium Chloride) 20 Meq Tab.er.prt 20 Meq PO BID 06/29/13 Reported Meclizine Hcl 25 Mg Tablet 75 Mg PO DAILY 06/29/13 Reported Allopurinol 100 Mg Tablet 100 Mg PO DAILY 06/29/13 Reported Lorazepam 1 Mg Tablet 1.5 Mg PO BID PRN 06/29/13 Reported Aspir 81 (Aspirin) 81 Mg Tablet.dr 162 Mg PO DAILY 06/29/13 Reported Impression . 1. Acute on chronic hypercapnic and hypoxic respiratory failure. I suspect secondary to acute on chronic cor pulmonale. Cannot exclude diastolic heart failure. 2. History of obstructive sleep apnea/obesity hypoventilation syndrome with intolerance to BiPAP/CPAP in the past. 3. History of chronic mild interstitial lung disease with stable mild ground-glass infiltrates and tiny lung nodules. Highly-suspected sarcoidosis. Did not require any steroid treatment due to stability of the parenchymal disease. 4. Abnormal chest x-ray with persistent bilateral interstitial infiltrates. Once she is stabilized, I will obtain followup CT chest and may do comparison with the old one. Plan . 1. d/c BiPAP , improved ABGs. 2. Cautious diuresis keeping in view of her blood pressure and urine output. 3. Urine culture has been sent to rule out any occult infection. 4. Nebulizer treatments. 5. Noncontrast CT of the chest to r/o progressive ILD 6. Nebulizer treatments. Discussed with the patient's daughter at the bedside. discussed with RN and RT. MARCELINA KABA MD August 19, 2016 11:03
--- NOTE | 2016-08-19 12:16 | RAD ---
CT of the chest without contrast, 08/19/2016: History: Shortness of breath, congestive heart failure Noncontrast scans were obtained. Comparison is made to a study from 03/06/2011. The heart is mildly enlarged. There is moderate calcific plaquing of the coronary arteries. There are mural appearing calcifications at the aortic root. The thoracic aorta is not dilated. Mediastinal lymph nodes are at the upper limits of normal in size. These nodes have increased in size since the previous study. Nodes along the lateral aspect of the AP window on the left measure 11 to 12 mm in short axis dimension. There is dense pulmonary consolidation in fairly in both lower lobes. There are air bronchograms. There are less dense, predominantly groundglass patchy infiltrates in both upper lobes primarily in the perihilar regions. There is mild streaky atelectasis in the right middle lobe. No significant volume of pleural fluid is evident. There is a 5 mm nonspecific nodule in the posterolateral aspect of the left upper lobe as seen on image 23 of series #2. There are radiopacities within the dependent aspect of the gallbladder suggesting gallstones. No pericholecystic edema is seen. IMPRESSION: 1. Moderate bilateral pulmonary infiltrates, most dense in both lower lobes. The findings suggest pneumonia. A component of pulmonary edema or chronic lung disease cannot be excluded. 2. Small nonspecific left upper lobe pulmonary nodule. 3. Cardiomegaly with calcific plaquing of the aorta and coronary arteries. 4. Cholelithiasis PQRS Compliance Statement: One or more of the following individualized dose reduction techniques were utilized for this examination: 1. Automated exposure control 2. Adjustment of the mA and/or kV according to patient size 3. Use of iterative reconstruction technique
[2016-08-19 15:00] VITALS: BP 130/62
[2016-08-19 19:15] VITALS: BP 102/55
[2016-08-19] MEDS: SIMVASTATIN 20 MG TABLET PO SCH (20:58)
[2016-08-19 23:20] VITALS: BP 112/67
[2016-08-20 03:07] VITALS: BP 92/63
[2016-08-20 07:00] VITALS: BP 113/66
[2016-08-20] MEDS: BUDESONIDE 0.5 MG/2 ML NEBU. NEB SCH ×2 (07:13→20:08)
[2016-08-20] MEDS: ALBUTEROL SULFATE 2.5 MG/3 ML NEBU. NEB SCH ×4 (07:13→20:08)
[2016-08-20 07:39] LABS: CALCIUM 8.4 mg/dL (8.5-10.1); CREATININE 1.4 mg/dL (0.6-1.0); GFR 44.5; MAGNESIUM 2.1 mg/dL (1.8-2.4); POTASSIUM 3.5 mmol/L (3.5-5.1)
--- NOTE | 2016-08-20 09:12 | PDOC ---
Provider Note Provider Note sleeping, no dyspnea- still 2+ edema legs, good output, wt down- labs ok- ct showed chf, no mass/nodules- seems erendira /corpulmonale is main problem as better w / bipap- daughter wants snf/rehab AHMET SUAREZ MD August 20, 2016 09:12
[2016-08-20] MEDS: POTASSIUM CHLORIDE 20 MEQ TABLET.ER. PO SCH ×3 (09:34→17:29)
[2016-08-20] MEDS: METOPROLOL TART IMMED RELEASE 25 MG TABLET. PO SCH ×2 (09:34→21:00)
[2016-08-20] MEDS: ISOSORBIDE MONONITRATE 20 MG TABLET PO SCH ×2 (09:35→20:59)
[2016-08-20] MEDS: ASPIRIN CHEWABLE 81 MG TABLET. PO SCH (09:35)
[2016-08-20] MEDS: FUROSEMIDE 40 MG/4 ML VIAL. IVP SCH ×2 (09:36→13:28)
[2016-08-20] MEDS: PANTOPRAZOLE 40 MG TABLET.DR. PO SCH (09:36)
[2016-08-20] MEDS: SERTRALINE 50 MG TABLET. PO SCH (09:36)
[2016-08-20] MEDS: ALLOPURINOL 100 MG TABLET. PO SCH (09:36)
[2016-08-20 11:00] VITALS: BP 87/51
--- NOTE | 2016-08-20 11:04 | PDOC ---
PULMONARY PROGRESS NOTES Subjective fully awake off BIPAP ABG improved Vitals Vital Signs Date Time Temp Pulse Resp B/P (MAP) Pulse Ox O2 Delivery O2 Flow Rate FiO2 08/20/16 09:35 87 113/66 08/20/16 07:47 Nasal Cannula 4.0 08/20/16 07:13 100 08/20/16 07:00 98.5 22 98.5 General: Alert, No acute distress Lungs: Other (decrease bs) Cardiovascular: S1 Abdomen: Soft, Non-tender Extremities: Other (2+edema) Labs Laboratory Tests Test 08/18/16 12:20 08/18/16 12:25 08/18/16 15:25 08/18/16 15:45 White Blood Count 7.5 x10^3/uL (4.0-11.0) Red Blood Count 3.84 x10^6/uL (3.50-5.40) Hemoglobin 11.6 g/dL (12.0-15.5) Hematocrit 36.1 % (36.0-47.0) Mean Corpuscular Volume 94 fL (79-100) Mean Corpuscular Hemoglobin 30 pg (25-35) Mean Corpuscular Hemoglobin Concent 32 g/dL (31-37) Red Cell Distribution Width 15.2 % (11.5-14.5) Platelet Count 237 x10^3/uL (140-400) Neutrophils (%) (Auto) 65 % (31-73) Lymphocytes (%) (Auto) 21 % (24-48) Monocytes (%) (Auto) 9 % (0-9) Eosinophils (%) (Auto) 5 % (0-3) Basophils (%) (Auto) 1 % (0-3) Neutrophils # (Auto) 4.9 x10^3uL (1.8-7.7) Lymphocytes # (Auto) 1.5 x10^3/uL (1.0-4.8) Monocytes # (Auto) 0.7 x10^3/uL (0.0-1.1) Eosinophils # (Auto) 0.4 x10^3/uL (0.0-0.7) Basophils # (Auto) 0.0 x10^3/uL (0.0-0.2) Prothrombin Time 14.5 SEC (11.7-14.0) Prothromb Time International Ratio 1.2 (0.8-1.1) Sodium Level 141 mmol/L (136-145) Potassium Level 4.4 mmol/L (3.5-5.1) Chloride Level 100 mmol/L (98-107) Carbon Dioxide Level 43 mmol/L (21-32) Anion Gap (6-14) Blood Urea Nitrogen 23 mg/dL (7-20) Creatinine 1.3 mg/dL (0.6-1.0) Estimated GFR (Cockcroft-Gault) 48.4 BUN/Creatinine Ratio 18 (6-20) Glucose Level 165 mg/dL (70-99) Calcium Level 8.9 mg/dL (8.5-10.1) Magnesium Level 2.5 mg/dL (1.8-2.4) Total Bilirubin 0.6 mg/dL (0.2-1.0) Aspartate Amino Transf (AST/SGOT) 20 U/L (15-37) Alanine Aminotransferase (ALT/SGPT) 31 U/L (14-59) Alkaline Phosphatase 90 U/L (46-116) Troponin I Quantitative 0.022 ng/mL (0.000-0.055) MQ-Mpk-O-Type Natriuretic Peptide 3471 pg/mL (0-124) Total Protein 7.8 g/dL (6.4-8.2) Albumin 2.9 g/dL (3.4-5.0) Albumin/Globulin Ratio 0.6 (1.0-1.7) O2 Saturation 89 % (92-99) 92 % (92-99) Arterial Blood pH 7.34 (7.35-7.45) 7.33 (7.35-7.45) Arterial Blood pCO2 at Patient Temp 73 mmHg (35-46) 73 mmHg (35-46) Arterial Blood pO2 at Patient Temp 60 mmHg (65-108) 68 mmHg (65-108) Arterial Blood HCO3 38 mmol/L (21-28) 38 mmol/L (21-28) Arterial Blood Base Excess 10 mmol/L (-3-3) 9 mmol/L (-3-3) FiO2 40 40 Urine Collection Type Unknown Urine Color Straw Urine Clarity Clear Urine pH 7.5 Urine Specific [place] 1.010 Urine Protein Negative mg/dL (NEG-TRACE) Urine Glucose (UA) Negative mg/dL (NEG) Urine Ketones (Stick) Negative mg/dL (NEG) Urine Blood Moderate (NEG) Urine Nitrite Negative (NEG) Urine Bilirubin Negative (NEG) Urine Urobilinogen Dipstick 0.2 mg/dL (0.2 mg/dL) Urine Leukocyte Esterase Negative (NEG) Urine RBC 11-20 /HPF (0-2) Urine WBC Rare /HPF (0-4) Urine Squamous Epithelial Cells Occ /LPF Urine Bacteria 0 /HPF (0-FEW) Urine Mucus Slight /LPF Test 08/19/16 06:00 08/20/16 03:15 O2 Saturation 90 % (92-99) Arterial Blood pH 7.38 (7.35-7.45) Arterial Blood pCO2 at Patient Temp 74 mmHg (35-46) Arterial Blood pO2 at Patient Temp 62 mmHg (65-108) Arterial Blood HCO3 43 mmol/L (21-28) Arterial Blood Base Excess 15 mmol/L (-3-3) FiO2 40 Sodium Level 141 mmol/L (136-145) Potassium Level 3.5 mmol/L (3.5-5.1) Chloride Level 97 mmol/L (98-107) Carbon Dioxide Level 43 mmol/L (21-32) Anion Gap 1 (6-14) Blood Urea Nitrogen 25 mg/dL (7-20) Creatinine 1.4 mg/dL (0.6-1.0) Estimated GFR (Cockcroft-Gault) 44.5 Glucose Level 107 mg/dL (70-99) Calcium Level 8.4 mg/dL (8.5-10.1) Magnesium Level 2.1 mg/dL (1.8-2.4) Laboratory Tests Test 08/20/16 03:15 Sodium Level 141 mmol/L (136-145) Potassium Level 3.5 mmol/L (3.5-5.1) Chloride Level 97 mmol/L (98-107) Carbon Dioxide Level 43 mmol/L (21-32) Anion Gap 1 (6-14) Blood Urea Nitrogen 25 mg/dL (7-20) Creatinine 1.4 mg/dL (0.6-1.0) Estimated GFR (Cockcroft-Gault) 44.5 Glucose Level 107 mg/dL (70-99) Calcium Level 8.4 mg/dL (8.5-10.1) Magnesium Level 2.1 mg/dL (1.8-2.4) Medications Active Scripts Medications Dose Route/Sig Days Date Category Omeprazole 40 Mg Capsule.dr 40 Mg PO DAILY 08/07/16 Reported Nitrostat (Nitroglycerin) 0.4 Mg Tab.subl 1 Tab SL UD 08/07/16 Reported Isosorbide Mononitrate 20 Mg Tablet 20 Mg PO BID 08/07/16 Reported Metoprolol Tartrate 25 Mg Tablet 1 Tab PO BID 08/07/16 Reported Furosemide 40 Mg Tablet 40 Mg PO BID 08/07/16 Reported Aspirin 81 Mg Tab.chew 1 Tab PO DAILY 08/07/16 Reported Symbicort 160-4.5 Mcg Inhaler (Budesonide/Formoterol Fumarate) 10.2 Gm Hfa.aer.ad 2 Puff IH BID 08/04/16 Reported Zoloft (Sertraline Hcl) 100 Mg Tablet 100 Mg PO DAILY 08/04/16 Reported Voltaren (Diclofenac Sodium) 100 Gm Gel..gram. 1 Gm TP QID 06/25/14 Reported Hydrocodone-Apap 7.5-325 (Hydrocodone Bit/Acetaminophen) 1 Each Tablet 1 Tab PO PRN Q6HRS PRN 06/25/14 Reported Simvastatin 20 Mg Tablet 20 Mg PO HS 06/25/14 Reported Klor-Con M20 (Potassium Chloride) 20 Meq Tab.er.prt 20 Meq PO BID 06/29/13 Reported Meclizine Hcl 25 Mg Tablet 75 Mg PO DAILY 06/29/13 Reported Allopurinol 100 Mg Tablet 100 Mg PO DAILY 06/29/13 Reported Lorazepam 1 Mg Tablet 1.5 Mg PO BID PRN 06/29/13 Reported Aspir 81 (Aspirin) 81 Mg Tablet.dr 162 Mg PO DAILY 06/29/13 Reported Impression . 1. Acute on chronic hypercapnic and hypoxic respiratory failure due to bi- ventricular failure. ( acute on chronic cor pulmonale./ diastolic heart failure.) 2. History of obstructive sleep apnea/obesity hypoventilation syndrome with intolerance to BiPAP/CPAP in the past. 3. History of chronic mild interstitial lung disease with stable mild ground-glass infiltrates and tiny lung nodules in the past Highly-suspected sarcoidosis. 4. Abnormal chest x-ray/ ct chest with bilateral GG interstitial infiltrates( CHF) and moderate basal atelectasis/?pneumonia Plan . 1. Off BiPAP , improved ABGs. 2. Continue diuresis keeping in view of her blood pressure and urine output. 3. Urine culture P. emperic antibiotic 4. Nebulizer treatments. 5. Noncontrast CT of the chest reviewed as discussed in impression 6. Nebulizer treatments. Discussed with the patient's daughter at the bedside. discussed with RN and RT. MARCELINA KABA MD August 20, 2016 11:04
--- NOTE | 2016-08-20 11:24 | PDOC ---
LISAKERWINYAIR Dae MANAGER [employer]OTEL 08/20/16 1124: CARDIO Progress Notes Date and Time Date of Service 08/20/2016 Time of Evaluation 1121 Subjective Subjective: No Chest Pain, No Palpitations, No Dizziness, Other (dyspnea improved) Comments: seated in chair Vitals Vitals Vital Signs Date Time Temp Pulse Resp B/P (MAP) Pulse Ox O2 Delivery O2 Flow Rate FiO2 08/20/16 11:00 98.4 80 24 87/51 (63) 94 Nasal Cannula 4.0 98.4 Weight Weight [ ] Input and Output Intake and Output Intake and Output 08/20/16 06:59 Intake Total 970 ml Output Total 4250 ml Balance -3280 ml Intake Oral 970 ml Output Urine Total 4250 ml Laboratory Labs Laboratory Tests Test 08/20/16 03:15 Sodium Level 141 mmol/L (136-145) Potassium Level 3.5 mmol/L (3.5-5.1) Chloride Level 97 mmol/L (98-107) Carbon Dioxide Level 43 mmol/L (21-32) Anion Gap 1 (6-14) Blood Urea Nitrogen 25 mg/dL (7-20) Creatinine 1.4 mg/dL (0.6-1.0) Estimated GFR (Cockcroft-Gault) 44.5 Glucose Level 107 mg/dL (70-99) Calcium Level 8.4 mg/dL (8.5-10.1) Magnesium Level 2.1 mg/dL (1.8-2.4) Physical Exam HEENT: Neck Supple W Full Motion Chest: Symmetric LUNGS: Other (coarse posteriorly; no crackles) Heart: S1S2, RRR Abdomen: Soft N/T, Other (truncal obesity) Extremities: Other (1+ bilateral lower extremity edema) Neurology: alert, oriented, follow commands Assessment Assessment 1. Acute on chronic diastolic heart failure preserved LV function weight down 4 pounds and negative 3+ L continue diuresis - convert to p.o. furosemide tomorrow 2. Acute on chronic respiratory failure with pulm HTN and untreated JENELLE off bi-pap per PULM 3. CAD non-obstructive medical management 4. Hypertension low normotensive 5. Sarcoidosis Home soon. FELICIA FIGUEROA MD 08/21/16 1359: CARDIO Progress Notes Plan Plan Late entry for 08/20/2016 Pt. seen and examined. Diuresing well. Continue current meds. Anticipate transfer to rehab 08/21. YAIR XIAO APRN August 20, 2016 11:24 FELICIA FIGUEROA MD August 21, 2016 13:59
[2016-08-20] MEDS: DOXYCYCLINE HYCLATE 100 MG TABLET PO SCH ×2 (11:29→21:04)
[2016-08-20] MEDS ORDERED: MAGNESIUM HYDROXIDE 2,400 MG/30 ML ORAL.SUSP. PO PRN (11:30)
[2016-08-20] MEDS: DICLOFENAC SODIUM 1% TOPICAL GEL 100GM TUBE. TP SCH ×4 (13:28→21:00)
[2016-08-20 15:00] VITALS: BP 101/55
[2016-08-20 19:47] VITALS: BP 95/61
[2016-08-20] MEDS: SIMVASTATIN 20 MG TABLET PO SCH (20:59)
[2016-08-20 23:25] VITALS: BP 97/63
[2016-08-21 03:00] VITALS: BP 95/67
[2016-08-21 07:05] VITALS: BP 96/57
[2016-08-21 07:28] LABS: BLOOD UREA NITROGEN 25 mg/dL (7-20); CALCIUM 8.5 mg/dL (8.5-10.1); CHLORIDE 97 mmol/L (98-107); CREATININE 1.3 mg/dL (0.6-1.0); GFR 48.4; GLUCOSE 196 mg/dL (70-99); POTASSIUM 3.5 mmol/L (3.5-5.1); SODIUM 142 mmol/L (136-145)
[2016-08-21 07:34] LABS: CARBON DIOXIDE > 45 mmol/L (21-32)
[2016-08-21] MEDS: ALBUTEROL SULFATE 2.5 MG/3 ML NEBU. NEB SCH (07:44)
[2016-08-21] MEDS: BUDESONIDE 0.5 MG/2 ML NEBU. NEB SCH (07:44)
[2016-08-21] MEDS ORDERED: POTASSIUM CHLORIDE 20 MEQ TABLET.ER. PO SCH (09:00)
[2016-08-21] MEDS ORDERED: FUROSEMIDE 40 MG TABLET. PO SCH (09:00)
--- NOTE | 2016-08-21 09:02 | DISCH ---
DISCHARGE FINAL DIAGNOSIS Problems Medical Problems: (1) Acute and chronic respiratory failure Status: Acute (2) CHF (congestive heart failure) Status: Acute CONDITION ON DISCHARGE: Stable SNF STAY <30 DAYS: Yes POST DISCHARGE ORDERS ACTIVITY ORDERS: Activity as tolerated WEIGHT BEARING STATUS: No restrictions DIET AFTER DISCHARGE: Cardiac FOLLOW-UP PHYSICIAN FOLLOW-UP: AHMET Mares MD August 21, 2016 09:02
[2016-08-21] MEDS: ALLOPURINOL 100 MG TABLET. PO SCH (09:09)
[2016-08-21] MEDS: PANTOPRAZOLE 40 MG TABLET.DR. PO SCH (09:09)
[2016-08-21] MEDS: SERTRALINE 50 MG TABLET. PO SCH (09:10)
[2016-08-21] MEDS: DOXYCYCLINE HYCLATE 100 MG TABLET PO SCH (09:10)
--- NOTE | 2016-08-21 09:10 | PDOC ---
Provider Note Provider Note [id number] AHMET SUAREZ MD August 21, 2016 09:10
[2016-08-21] MEDS: ASPIRIN CHEWABLE 81 MG TABLET. PO SCH (09:12)
[2016-08-21] MEDS: DICLOFENAC SODIUM 1% TOPICAL GEL 100GM TUBE. TP SCH (09:14)
[2016-08-21] MEDS ORDERED: BUMETANIDE 1 MG TABLET. PO SCH (10:30)
[2016-08-21 10:51] VITALS: BP 134/65
[2016-08-21] MEDS: METOPROLOL TART IMMED RELEASE 25 MG TABLET. PO SCH (10:51)
[2016-08-21] MEDS: ISOSORBIDE MONONITRATE 20 MG TABLET PO SCH (10:51)
--- NOTE | 2016-08-21 11:53 | DS ---
DATE OF DISCHARGE: 08/21/2016 HOSPITAL SUMMARY: A 76-year-old black female with chronic obstructive sleep apnea, who does not use CPAP at home as well as mild coronary artery disease and pulmonary hypertension, came in with congestive heart failure per chest x-ray and physical examination. CBC and chemistry profile was unremarkable. BNP elevated at 3471. Urine was clear. Chest CT showed changes of bilateral infiltrates consistent with congestive heart failure. Chest x-ray did not show any effusions. She was treated with BiPAP and her respiratory acidosis cleared and she is back to her stable state and the edema is reducing with diuresis. She is comfortable to be going to [facility] and will be followed as an outpatient at this point. FINAL DIAGNOSES: 1. Acute respiratory failure secondary to cor pulmonale. 2. Untreated sleep apnea, obstructive. 3. Chronic kidney disease 3 stable for edema secondary to cor pulmonale. OPERATIONS, PROCEDURES, AND COMPLICATIONS: None. CONSULTATIONS: Dr. Schaefer and Dr. Mark through disposition. Continue meds as written. She will need to use CPAP if possible or BiPAP as needed. She is going to [facility]. PROGNOSIS: Guarded. AHMET SUAREZ MD DR: PHILLIP/annamarie JOB#: [id number] / [id number]
== END 2016-08-21 11:00 | DRG 291 ==
LOC: ER 11:23 → 2 SOUTH 13:27
PROVIDERS: ADMIT Family Medicine; ATTEND Family Medicine
PROC: 5A09357 Assistance with Respiratory Ventilation, Less than 24 Consecutive Hours, Continuous Positive Airway Pressure (ICD-10-PCS; principal; 2016-08-18)
DX: I50.33 Acute on chronic diastolic (congestive) heart failure (principal); J96.21 Acute and chronic respiratory failure with hypoxia; J96.22 Acute and chronic respiratory failure with hypercapnia; I13.0 Hypertensive heart and chronic kidney disease with heart failure and stage 1 through stage 4 chronic kidney disease, or unspecified chronic kidney disease; E66.2 Morbid (severe) obesity with alveolar hypoventilation; Z68.43 Body mass index [BMI] 50.0-59.9, adult; E87.2 Acidosis; J98.11 Atelectasis; D86.9 Sarcoidosis, unspecified; F32.9 Major depressive disorder, single episode, unspecified; F41.9 Anxiety disorder, unspecified; M54.5 Low back pain; E11.22 Type 2 diabetes mellitus with diabetic chronic kidney disease; E78.00 Pure hypercholesterolemia, unspecified; E78.5 Hyperlipidemia, unspecified; I25.10 Atherosclerotic heart disease of native coronary artery without angina pectoris; I27.2 Other secondary pulmonary hypertension; J44.9 Chronic obstructive pulmonary disease, unspecified; K21.9 Gastro-esophageal reflux disease without esophagitis; M10.9 Gout, unspecified; N18.3 Chronic kidney disease, stage 3 (moderate); Z82.3 Family history of stroke; Z82.49 Family history of ischemic heart disease and other diseases of the circulatory system; Z80.9 Family history of malignant neoplasm, unspecified; Z91.19 Patient's noncompliance with other medical treatment and regimen; Z99.81 Dependence on supplemental oxygen; Z88.5 Allergy status to narcotic agent; Z88.8 Allergy status to other drugs, medicaments and biological substances; M19.90 Unspecified osteoarthritis, unspecified site; I27.81 Cor pulmonale (chronic)
CPT/HCPCS: 36415; 36600; 71010; 71250; 80048; 80053; 81001; 82805; 83735; 83880; 84484; 85027; 85610; 93005; 94250; 94640; 94660; 94760; 96374; J1940; J7620; 99285-25

== ENCOUNTER → 2016-10-23 | Outpatient (CLI) | payer MEDICARE, OTHER ==
[~2016-10-23] MED LIST changes: +ASPI-630 PO; -ASPI81TA2 PO; +DICL100G18 TP; -DICL100G7 TP; +EZET1TAB30 PO; -EZET1TAB4 PO; -HYDR-2666 PO; +HYDR-2758 PO; -MELO-150 PO; +MELO15TA23 PO
[2016-10-23 13:35] LABS: CALCIUM 9.5 mg/dL (8.5-10.1); CREATININE 1.9 mg/dL (0.6-1.0); GFR 31.3; POTASSIUM 3.2 mmol/L (3.5-5.1)
== END | disposition home or self-care (01) ==
LOC: SPEC 13:00
PROVIDERS: ATTEND Internal Medicine Cardiovascular Disease
DX: N18.3 Chronic kidney disease, stage 3 (moderate) (principal); I50.32 Chronic diastolic (congestive) heart failure
CPT/HCPCS: 36415; 80048

== ENCOUNTER → 2016-11-05 | Outpatient (CLI) | payer MEDICARE, OTHER ==
[2016-11-05 16:01] LABS: CALCIUM 9.1 mg/dL (8.5-10.1); CREATININE 2.1 mg/dL (0.6-1.0); GFR 27.9; POTASSIUM 3.3 mmol/L (3.5-5.1)
== END | disposition home or self-care (01) ==
LOC: SPEC 15:43
PROVIDERS: ATTEND Internal Medicine Cardiovascular Disease
DX: I11.0 Hypertensive heart disease with heart failure (principal); I50.30 Unspecified diastolic (congestive) heart failure
CPT/HCPCS: 36415; 80048

== ENCOUNTER → 2016-11-12 | Outpatient (CLI) | payer MEDICARE, OTHER ==
[2016-11-12 13:48] LABS: CALCIUM 9.6 mg/dL (8.5-10.1); CREATININE 1.8 mg/dL (0.6-1.0); GFR 33.3
[2016-11-12 13:55] LABS: POTASSIUM 2.9 mmol/L (3.5-5.1)
== END | disposition home or self-care (01) ==
LOC: SPEC 13:23
PROVIDERS: ATTEND Internal Medicine Cardiovascular Disease
DX: I11.0 Hypertensive heart disease with heart failure (principal); I50.30 Unspecified diastolic (congestive) heart failure
CPT/HCPCS: 36415; 80048

== ENCOUNTER → 2016-11-16 | Outpatient (CLI) | payer MEDICARE, OTHER ==
[2016-11-16 13:44] LABS: CALCIUM 9.3 mg/dL (8.5-10.1); CREATININE 1.8 mg/dL (0.6-1.0); GFR 33.3; POTASSIUM 4.1 mmol/L (3.5-5.1)
== END | disposition home or self-care (01) ==
LOC: SPEC 13:20
PROVIDERS: ATTEND Internal Medicine Cardiovascular Disease
DX: I50.32 Chronic diastolic (congestive) heart failure (principal); I50.33 Acute on chronic diastolic (congestive) heart failure; N18.3 Chronic kidney disease, stage 3 (moderate)
CPT/HCPCS: 36415; 80048

== ENCOUNTER → 2016-11-26 | Outpatient (CLI) | payer MEDICARE, OTHER ==
[2016-11-26 14:05] LABS: CALCIUM 8.9 mg/dL (8.5-10.1); CREATININE 1.5 mg/dL (0.6-1.0); GFR 41.1; POTASSIUM 4.7 mmol/L (3.5-5.1)
== END | disposition home or self-care (01) ==
LOC: SPEC 13:32
PROVIDERS: ATTEND Internal Medicine Cardiovascular Disease
DX: I10 Essential (primary) hypertension (principal); I50.30 Unspecified diastolic (congestive) heart failure
CPT/HCPCS: 36415; 80048

== ENCOUNTER → 2016-12-02 | Outpatient (CLI) | payer MEDICARE, OTHER ==
[2016-12-02 14:24] LABS: CALCIUM 9.6 mg/dL (8.5-10.1); CREATININE 1.8 mg/dL (0.6-1.0); GFR 33.3
== END | disposition home or self-care (01) ==
LOC: SPEC 14:01
PROVIDERS: ATTEND Internal Medicine Cardiovascular Disease
DX: I11.0 Hypertensive heart disease with heart failure (principal); I50.30 Unspecified diastolic (congestive) heart failure
CPT/HCPCS: 36415; 80048

== ENCOUNTER → 2016-12-11 | Outpatient (CLI) | payer MEDICARE, OTHER ==
[2016-12-11 13:17] LABS: CALCIUM 9.4 mg/dL (8.5-10.1); CREATININE 1.8 mg/dL (0.6-1.0); GFR 33.3; POTASSIUM 3.2 mmol/L (3.5-5.1)
== END | disposition home or self-care (01) ==
LOC: SPEC 12:55
PROVIDERS: ATTEND Internal Medicine Cardiovascular Disease
DX: I10 Essential (primary) hypertension (principal); I50.30 Unspecified diastolic (congestive) heart failure
CPT/HCPCS: 36415; 80048

== ENCOUNTER → 2016-12-17 | Outpatient (CLI) | payer MEDICARE, OTHER ==
[~2016-12-17] MED LIST changes: +METO-247 PO; -METO100T11 PO
[2016-12-17 13:06] LABS: CALCIUM 9.3 mg/dL (8.5-10.1); CREATININE 1.6 mg/dL (0.6-1.0); GFR 38.1; POTASSIUM 3.7 mmol/L (3.5-5.1)
== END | disposition home or self-care (01) ==
LOC: SPEC 12:51
PROVIDERS: ATTEND Internal Medicine Cardiovascular Disease
DX: I10 Essential (primary) hypertension (principal); I50.30 Unspecified diastolic (congestive) heart failure
CPT/HCPCS: 36415; 80048

== ENCOUNTER → 2016-12-31 | Outpatient (CLI) | payer MEDICARE, OTHER ==
[2016-12-31 14:31] LABS: CALCIUM 9.6 mg/dL (8.5-10.1); CREATININE 1.6 mg/dL (0.6-1.0); GFR 38.1; POTASSIUM 3.5 mmol/L (3.5-5.1)
== END | disposition home or self-care (01) ==
LOC: SPEC 13:14
PROVIDERS: ATTEND Internal Medicine Cardiovascular Disease
DX: Z51.81 Encounter for therapeutic drug level monitoring (principal); I50.32 Chronic diastolic (congestive) heart failure
CPT/HCPCS: 36415; 80048

== ENCOUNTER → 2017-01-14 | Outpatient (CLI) | payer MEDICARE, OTHER ==
[~2017-01-14] MED LIST changes: +ALBU2.5V5 NEB; +BUME2TAB PO; +DIGO250T PO; +METO50TA29 PO; +METO5TAB4 PO; +NYST60PO TP; +POTA20LI27 PO; +SPIR25TA3 PO
[2017-01-14 13:33] LABS: CALCIUM 8.9 mg/dL (8.5-10.1); CREATININE 1.7 mg/dL (0.6-1.0); GFR 35.5; POTASSIUM 3.6 mmol/L (3.5-5.1)
== END | disposition home or self-care (01) ==
LOC: SPEC 13:14
PROVIDERS: ATTEND Internal Medicine Cardiovascular Disease
DX: Z51.81 Encounter for therapeutic drug level monitoring (principal); I50.32 Chronic diastolic (congestive) heart failure
CPT/HCPCS: 36415; 80048